=== PATIENT | female | born 1985 | race Caucasian/White ===

== ENCOUNTER → 2016-04-24 | Outpatient (CLI) | payer OTHER ==
[~2016-04-24] MED LIST: ALPR.25 PO; AZAT50 PO; DICY1TAB26 PO; DULO1CAP PO; DULO1CAP3 PO; LACT20SO4 PO; LUPR3.75 IM; MACR100C2 PO; MESA1000R RECTAL; MESA1TAB2 PO; MESA400C2 PO; MESA800 PO; ONDAN4 PO; OXYC1SOL5 PO; OXYC1TAB63 PO; PERC5TAB12 PO; PHEN0.4T PO; PRED10 PO; PRED20 PO; PROM25TA10 PO; PROT40TA PO; SERT50 PO; SPRI28TA PO; ZOFR4TAB PO; [UNRECOGNIZED DRUG - OTHER] PO
[2016-04-24 15:29] LABS: AUTOMATED NEUTROPHIL # 10.3 TH/MM3 (1.8-7.7); BASOPHIL % 0.3 % (0.0-2.0); EOSINOPHIL % 0.3 % (0.0-4.0); HEMO FLAGS DIFF FINAL; LYMPH % 14.2 % (9.0-44.0); LYMPHOCYTE # 1.8 TH/MM3 (1.0-4.8); MEAN CELL VOLUME 85.9 FL (80.0-100.0); MEAN CORPUSCULAR HEMOGLOBIN 27.8 PG (27.0-34.0); MEAN CORPUSCULAR HGB CONC 32.3 % (32.0-36.0); MONO % 2.7 % (0.0-8.0); NEUT % 82.5 % (16.0-70.0); PLATELET COUNT 379 TH/MM3 (150-450); RED BLOOD COUNT 4.54 MIL/MM3 (4.00-5.30); RED CELL DISTRIBUTION WIDTH 17.2 % (11.6-17.2); WHITE BLOOD COUNT 12.4 TH/MM3 (4.0-11.0)
[2016-04-24 15:39] LABS: BLOOD, URINE MOD (NEG); COMMENT (UR) CULT NOT INDICATED; GLUCOSE,URINE NEG (NEG); KETONE, URINE TRACE mg/dL (NEG); MUCUS URINE FEW /lpf (OCC); NITRITE,URINE NEG (NEG); SQUAMOUS EPITHELIAL CELL URINE 2 /hpf (0-5); URINE COLOR YELLOW (YELLW/STRAW)
[2016-04-24 15:56] LABS: ANION GAP 12 MEQ/L (5-15); BICARBONATE 27.1 MEQ/L (21.0-32.0); BLOOD UREA NITROGEN 22 MG/DL (7-18); CHLORIDE 100 MEQ/L (98-107); GLOMERULAR FILTRATION RATE 95 ML/MIN (>89); GLUCOSE,FASTING 109 MG/DL (74-99); POTASSIUM 4.3 MEQ/L (3.5-5.1); SODIUM (NA) 139 MEQ/L (136-145)
[2016-04-24 16:02] LABS: BHCG SCREEN QUALITATIVE LESS THAN 1 MIU/ML (0-5)
== END ==
LOC: CPRE 14:31
PROVIDERS: ATTEND Obstetrics & Gynecology
DX: Z01.812 Encounter for preprocedural laboratory examination (principal); N80.9 Endometriosis, unspecified
CPT/HCPCS: 36415; 80048; 81001; 84703; 85025; 86850; 86900; 86901

== ENCOUNTER → 2016-04-26 | Day surgery (SDC) | payer OTHER ==
[~2016-04-26] VITALS: Ht 167.6 cm; Wt 98.7 kg
[~2016-04-26] MED LIST changes: +*LABETALOL HCL 100 MG/20 ML VIAL PERIprocedural Use ONLY ONE; +*MEPERIDINE 25 MG INJ VIAL PERIprocedural Use ONLY ONE; +*ONDANSETRON 4 MG VIAL PERIprocedural Use ONLY ONE; +*morphine SULFATE 8 MG/ML PERIprocedure ONLY ONE; +ACETAMINOPHEN 1000 MG/100 ML VIAL IV ONE; +ACETAMINOPHEN/HYDROcodone 325 MG/10 MG TAB PO PRN; +ACETAMINOPHEN/HYDROcodone 325 MG/5 MG TAB PO PRN; +APREPITANT 40 MG CAP ONE; +APREPITANT 40 MG CAP PO SCH; +ARTIFICIAL TEARS OPTH OINT 3.5 APPLIC/3.5 GM TUBO ONE; +BUPIVACAINE HCL PF 0.25% 30 ML VIAL ONE; +DEXAMETHASONE SOD PHOS 4 MG/ML VIAL ONE; -DICY1TAB26 PO; +FAMOTIDINE 20 MG/2 ML VIAL ONE; +HYDROCORTISONE SOD SUCCINATE 100 MG VIAL IV SCH; +HYDROCORTISONE SOD SUCCINATE 100 MG VIAL ONE; +HYDROmorphone HCL PF 1 MG/ML VIAL IVP PRN; +HYDROmorphone HCL PF 2 MG/ML VIAL ONE; +IBUPROFEN 600 MG TAB PO PRN; +INSULIN HUMAN REGULAR 1,000 UNITS/10 ML VIAL SQ PRN; +KETOROLAC TROMETHAMINE 30 MG/ML (IVP) VIAL IVP PRN; -LACT20SO4 PO; +LACTATED RINGER'S 1000 ML INJ 1,000 ML IV ONE; +LACTATED RINGER'S 1000 ML INJ 1,000 ML IV SCH; +LACTATED RINGER'S 1000 ML IV SCH; +LORazepam 0.5 MG TAB PO PRN; -MESA1000R RECTAL; -MESA800 PO; +METOPROLOL TARTRATE 25 MG TAB PO PRN; +MIDAZOLAM HCL 2 MG/2 ML VIAL ONE; +NEOSTIGMINE 3 MG/3 ML SYR IV ONE; +NORMOSOL R INJ 1,000 ML IV ONE; -ONDAN4 PO; +ONDANSETRON HCL 4 MG/2 ML VIAL IV PUSH ONE; +ONDANSETRON HCL 4 MG/2 ML VIAL IVP PRN; -OXYC1SOL5 PO; -PRED20 PO; +PROMETHAZINE INJ 25 MG/ML VIAL IM PRN; +PROPOFOL 200 MG/20 ML AMP IV ONE; -SERT50 PO; +SODIUM CHLORID 0.9% 500 ML IV SCH; +SODIUM CHLORIDE 0.9% FLUSH 5 ML FLUSH FLUSH PRN; +SODIUM CHLORIDE 0.9% FLUSH 5 ML FLUSH FLUSH SCH; +SUGAMMADEX SODIUM 200 MG/2 ML VIAL IV PUSH ONE; +ceFAZolin 1,000 MG/NS 100 ML IV SCH; +ceFAZolin 2 GM PREMIX 50 ML IV SCH; +ceFAZolin 2 GM PREMIX 50 ML ONE; +diphenhydrAMINE HCL 25 MG CAP PO PRN; +fentaNYL CITRATE 250 MCG/5 ML AMP ONE
[2016-04-26 06:54] VITALS: BP 140/91; PULSE 87; RESP 20; TEMP 97.9; O2SAT 96
[2016-04-26 12:40] VITALS: O2SAT 99
--- NOTE | 2016-04-26 13:28 | MP ---
cc: IZABELLA RAMACHANDRAN M.D., STEPHEN J. M.D. DATE OF SURGERY: 04/26/2016 PREOPERATIVE DIAGNOSIS 1. Chronic pelvic pain. 2. History of ulcerative colitis. 3. Documented pedunculated uterine fibroid. 4. Complex ovarian cyst of the right ovary. 5. Dyspareunia. 6. Dysmenorrhea. PROCEDURE Exam under anesthesia, operative laparoscopy with robot assist, solitary myomectomy, right ovarian cystectomy, resection and ablation of pelvic endometriosis. POSTOPERATIVE DIAGNOSIS 1. Chronic pelvic pain. 2. History of ulcerative colitis. 3. Documented pedunculated uterine fibroid. 4. Complex ovarian cyst of the right ovary. 5. Dyspareunia. 6. Dysmenorrhea. 7. Stage III pelvic endometriosis. 8. Small pedunculated uterine myoma. 9. Endometrioma of the right ovary. SURGEON Abimael ANESTHESIA General with endotracheal intubation. ESTIMATED BLOOD LOSS 50 cc. DRAINS Ng to gravity during the procedure. INDICATION FOR PROCEDURE Patient with persistent chronic pelvic pain despite conservative measures. Ultrasound reveals a solid mass developing off the right uterine cornua consistent with a uterine fibroid measuring about 3-4 cm. She also had a complex echogenic cyst of the right ovary suggesting either dermoid cyst or endometrioma. After discussing the patient's clinical history the patient elected for operative laparoscopy. The patient received Ancef 2 grams prophylactically. PROCEDURE DESCRIPTION The patient was taken to the operating room in stable condition, underwent general anesthesia with endotracheal intubation. She was carefully positioned on the operating table in dorsal lithotomy position with Karthikeyan stirrups using the lower extremities for support. She had sequentials placed on her lower extremities for VTE prophylaxis. She was carefully positioned and padding was added where necessary. The arms were tucked at her sides. The patient was then prepped and draped. A timeout was conducted and agreed by all present in the room. Examination of the pelvis revealed midline cervix, no focal fixation or deformity. A small VCare uterine manipulator was inserted through the cervical os. A Ng catheter was inserted by sterile technique. Gloves were changed. The abdomen was examined. The patient is obese. There was no evidence of previous scar. The umbilical port was chosen first. A small incision was made after injecting with about 3 cc of 0.25% plain Marcaine. A Veress needle was used to gain entry into the peritoneal cavity. With insufflation at low pressure pneumoperitoneum was established and then a 5 mm visible port trocar was inserted into the peritoneal cavity without complication. The patient was then placed in steep Trendelenburg positioning and then accessory ports were placed on the right and left flank using 8 mm trocars. The patient had a suprapubic port placed as an special education assistant port using a 5 mm trocar and then the umbilical port was traded to a 12 mm camera port. The [employer] James patient cart was side docked with the #2 arm on the patient's left and the #1 arm on the right. Monopolar scissors were attached to the #2 arm and a bipolar [place] grasper attached to the #1 arm. The camera chosen was a 0 degrees lens. Good articulation was noted. Attention was directed to the surgeon cart where good visualization was established. Anatomic survey was conducted. The myoma obstructed the right ovary necessitating its removal first. Electrocautery using bipolar technique and sharp dissection was to excise the myoma after securing its vascular pedicle. Hemostatic control was established and the myoma was placed in the dependent portion of the cul-de-sac for later retrieval. The ovarian cyst was then evaluated and incision was made using the monopolar scissors on the antimesenteric surface of the ovary. Immediate entry revealed dark-brown syrupy material consistent with an endometrioma. The cyst was irrigated and evacuated with copious saline and then the cyst wall was excised by a combination of simple retraction and blunt dissection without evidence of active bleeding or hematoma. The cyst wall was removed and sent as permanent section. On continuation of the dissection the patient had multiple peritoneal implants involving the ovarian fossa, uterosacral ligaments on the right and left, with some minimal disease of the cul-de-sac. There was no significant deformity. All peritoneal lesions that were visible were mostly white lesions that were ablated using the monopolar energy without complication. No injuries to adjacent vital structures were noted. After completion of the ablation of the visible implants filmy peritoneal adhesions were excised. This was predominantly over the right ovary and right fallopian tube. Irrigation was conducted. There was no active bleeding. At this point the robotic portion of the procedure was complete. The patient cart was undocked. Straight laparoscopy was used. An EndoCatch bag was introduced through the umbilical port to retrieve the myoma. The myoma was then brought through the umbilical port after extending the incision approximately a centimeter allowing retrieval intact. The specimen was sent in formalin. Re-examination of the pelvis was dry with no active bleeding. The umbilical port was closed with interrupted suture of 0 Vicryl under direct vision of the closure of the fascia. Re-insufflation of the pneumoperitoneum again revealed the umbilical closure was intact, no complication. At this point the pneumoperitoneum was decompressed again and the trocars were removed, closing the incisions with a subcuticular suture of 4-0 Monocryl, Steri-Strips and Band-Aids. The uterine manipulator and the Ng were removed and retrieved easily without complication. There was no vaginal bleeding or injury to the cervix or vagina. At the completion of the case the final count was correct, the patient was stable. She was taken to the recovery room on room air. Jose Varghese MD [facility] /9:46 AM /1:06 PM
[2016-04-26 14:25] VITALS: BP 135/83; PULSE 88; RESP 18; TEMP 97.6; O2SAT 96
== END | disposition home or self-care (01) ==
LOC: HSDC 05:42
PROVIDERS: ATTEND Obstetrics & Gynecology
DX: N80.9 Endometriosis, unspecified (principal); D25.9 Leiomyoma of uterus, unspecified; N83.201 Unspecified ovarian cyst, right side; N94.10 Unspecified dyspareunia
CPT/HCPCS: 00840; 58662; 88305; 94150; J0131; J0690; J1100; J1170; J2175; J2250; J2270; J2405; J2710; J3010; J7120; 88304; J1720; J8501

== ENCOUNTER 2016-07-20 22:16 | Emergency (ER) | payer OTHER ==
[~2016-07-20] VITALS: Ht 167.6 cm; Wt 100.0 kg
[~2016-07-20 22:16] MED LIST changes: -*LABETALOL HCL 100 MG/20 ML VIAL PERIprocedural Use ONLY ONE; -*MEPERIDINE 25 MG INJ VIAL PERIprocedural Use ONLY ONE; -*ONDANSETRON 4 MG VIAL PERIprocedural Use ONLY ONE; -*morphine SULFATE 8 MG/ML PERIprocedure ONLY ONE; -ACETAMINOPHEN 1000 MG/100 ML VIAL IV ONE; -ACETAMINOPHEN/HYDROcodone 325 MG/10 MG TAB PO PRN; -ACETAMINOPHEN/HYDROcodone 325 MG/5 MG TAB PO PRN; -APREPITANT 40 MG CAP ONE; -APREPITANT 40 MG CAP PO SCH; -ARTIFICIAL TEARS OPTH OINT 3.5 APPLIC/3.5 GM TUBO ONE; -BUPIVACAINE HCL PF 0.25% 30 ML VIAL ONE; -DEXAMETHASONE SOD PHOS 4 MG/ML VIAL ONE; -DULO1CAP3 PO; -FAMOTIDINE 20 MG/2 ML VIAL ONE; -HYDROCORTISONE SOD SUCCINATE 100 MG VIAL IV SCH; -HYDROCORTISONE SOD SUCCINATE 100 MG VIAL ONE; -HYDROmorphone HCL PF 1 MG/ML VIAL IVP PRN; -HYDROmorphone HCL PF 2 MG/ML VIAL ONE; -IBUPROFEN 600 MG TAB PO PRN; -INSULIN HUMAN REGULAR 1,000 UNITS/10 ML VIAL SQ PRN; -KETOROLAC TROMETHAMINE 30 MG/ML (IVP) VIAL IVP PRN; -LACTATED RINGER'S 1000 ML INJ 1,000 ML IV ONE; -LACTATED RINGER'S 1000 ML INJ 1,000 ML IV SCH; -LACTATED RINGER'S 1000 ML IV SCH; -LORazepam 0.5 MG TAB PO PRN; -LUPR3.75 IM; -MACR100C2 PO; -METOPROLOL TARTRATE 25 MG TAB PO PRN; -MIDAZOLAM HCL 2 MG/2 ML VIAL ONE; -NEOSTIGMINE 3 MG/3 ML SYR IV ONE; -NORMOSOL R INJ 1,000 ML IV ONE; -ONDANSETRON HCL 4 MG/2 ML VIAL IV PUSH ONE; -ONDANSETRON HCL 4 MG/2 ML VIAL IVP PRN; -PERC5TAB12 PO; -PHEN0.4T PO; -PROM25TA10 PO; -PROMETHAZINE INJ 25 MG/ML VIAL IM PRN; -PROPOFOL 200 MG/20 ML AMP IV ONE; -SODIUM CHLORID 0.9% 500 ML IV SCH; -SODIUM CHLORIDE 0.9% FLUSH 5 ML FLUSH FLUSH PRN; -SODIUM CHLORIDE 0.9% FLUSH 5 ML FLUSH FLUSH SCH; -SUGAMMADEX SODIUM 200 MG/2 ML VIAL IV PUSH ONE; -[UNRECOGNIZED DRUG - OTHER] PO; -ceFAZolin 1,000 MG/NS 100 ML IV SCH; -ceFAZolin 2 GM PREMIX 50 ML IV SCH; -ceFAZolin 2 GM PREMIX 50 ML ONE; -diphenhydrAMINE HCL 25 MG CAP PO PRN; -fentaNYL CITRATE 250 MCG/5 ML AMP ONE
[2016-07-20 22:32] VITALS: BP 139/105; PULSE 116; RESP 20; TEMP 98.2; O2SAT 97
[2016-07-20] MEDS ORDERED: PANTOPRAZOLE SODIUM 40 MG VIAL IVP ONE (22:45)
[2016-07-20] MEDS ORDERED: SODIUM CHLOR 0.9% 1000 ML INJ 1,000 ML IV SCH (22:45)
[2016-07-20] MEDS ORDERED: HYDROmorphone HCL PF 1 MG/ML VIAL IV PUSH ONE ×2 (22:45→23:45)
[2016-07-20] MEDS ORDERED: SODIUM CHLORIDE 0.9% FLUSH 10 ML FLUSH IV FLUSH PRN (22:45)
[2016-07-20] MEDS ORDERED: ONDANSETRON HCL 4 MG/2 ML VIAL IVP ONE (22:45)
[2016-07-20] MEDS ORDERED: LUPR3.75 IM (22:50)
--- NOTE | 2016-07-20 22:59 | PD ---
HPI Chief Complaint: Abdominal Pain Time Seen by Provider: 22:45 Travel History International Travel<30 days: No Contact w/Intl Traveler<30days: No Traveled to known affect area: No History of Present Illness HPI 31-year-old female presents to the emergency department by private transportation the care of her mother for evaluation of abdominal pain 2 days. Patient states she has a history of ulcer colitis and is having an exacerbation. No report of diarrhea or mucoid stool or bloody stool. Patient' s had vomiting. Patient also history of endometriosis ovarian cysts and ruptured ovarian cyst. No prior history of ovarian torsion. Patient rates pain 10 over 10 in intensity. No report of fever or chills. No hematemesis coffee-ground emesis or bilious emesis. Patient is followed by Dr. Caicedo and Dr. Gonzalez. Patient has required last immobilization of the past for intractable pain and intractable vomiting. No dysuria frequency or urgency. Patient denies and takes control pills is also on Lupron. Patient is unable to identify exacerbating or alleviating factors. [facility] Past Medical History Narrative Medical Ulcerative colitis, endometriosis, ovarian cysts, uterine myomectomy, EGD, colonoscopy, appendectomy; no tobacco use occasional alcohol use; nursing notes reviewed Arthritis: No Cancer: No Cardiovascular Problems: No Diabetes: No Diminished Hearing: No Endocrine: No Gastrointestinal Disorders: Yes (COLITIS, GERD) GERD: No Genitourinary: Yes (frequent UTI's) Hepatitis: No Hiatal Hernia: No Hypertension: No Immune Disorder: No Implanted Vascular Access Dvce: Yes Kidney Stones: No Medical other: No Musculoskeletal: No Neurologic: No Psychiatric: Yes (anxiety) Reproductive: Yes (bleeding with fibroid, removed vaginally ) Respiratory: No Immunizations Current: Yes Renal Failure: No Thyroid Disease: No Ulcer: No ?: Not LMP: about a month ago : 0 Ovarian Cysts: Yes Past Surgical History Abdominal Surgery: Yes (RUPTURED CYST, APPENDECTOMY) AICD: No Appendectomy: Yes Body Medical Devices: 8 screw in jaw Cardiac Surgery: No Ear Surgery: No Endocrine Surgery: No Eye Surgery: No Genitourinary Surgery: No Gynecologic Surgery: Yes (fibroid from uterus removed vaginally ) Joint Replacement: No Neurologic Surgery: No Oral Surgery: Yes (jaw surgery to correct underbite) Pacemaker: No Thoracic Surgery: No Other Surgery: Yes Social History Alcohol Use: Yes (social, rare) Tobacco Use: No (quit; previous smoker) Substance Use: No Allergies-Medications (Allergen,Severity, Reaction): Coded Allergies: Codeine (Verified Adverse Reaction, Severe, Vomitting, 04/24/16) Reported Meds & Prescriptions Reported Meds & Active Scripts Active Phenergan (Promethazine HCl) 25 Mg Tablet 25 Mg PO Q6H PRN Pyridium (Phenazopyridine HCl) 100 Mg Tab 100 Mg PO Q8H PRN Macrobid (Nitrofurantoin Monohydrate Macrocrystals) 100 Mg Capsule 100 Mg PO BID 14 Days Percocet (Oxycodone-Acetaminophen) 5-325 mg Tab 1 Tab PO Q6H PRN Reported Lupron Depot Inj Kit (Leuprolide Acetate) 3.75 Mg Kit 3.75 Mg IM ONCE Azathioprine 50 Mg Tab 50 Mg PO DAILY Hazardous agent use appropriate precautions for handling and disposal. Mesalamine DR (Mesalamine) 800 Mg Tab 800 Mg PO TID Sprintec 28 (Norgestimate-Ethinyl Estradiol) 0.25-35 mg-Mcg Tab 1 Tab PO DAILY Protonix (Pantoprazole Sodium) 40 Mg Tab 40 Mg PO DAILY Oxycodone-Acetaminophen 5-325 mg Tab 1 Tab PO Q6H PRN Review of Systems Except as stated in HPI: all other systems reviewed are Neg General / Constitutional: No: Fever, Chills HENT: No: Congestion Cardiovascular: No: Chest Pain or Discomfort Gastrointestinal: Positive: Nausea, Vomiting, Abdominal Pain Genitourinary: Positive: Dysuria, Flank Pain Musculoskeletal: No: Myalgias, Arthralgias Skin: No Rash Neurologic: No: Weakness Psychiatric: Positive: Anxiety Hematologic/Lymphatic: No: Lymph Node Enlargement Physical Exam Narrative GENERAL: Well-developed well-nourished female in no respiratory distress in obvious discomfort SKIN: Warm and dry. HEAD: Normocephalic. EYES: No scleral icterus. No injection or drainage. NECK: Supple, trachea midline. No JVD or lymphadenopathy. CARDIOVASCULAR: Regular rate and rhythm without murmurs, gallops, or rubs. RESPIRATORY: Breath sounds equal bilaterally. No accessory muscle use. GASTROINTESTINAL: Abdomen soft, diffusely tender to palpation in all quadrants, no guarding or rebound, nondistended. MUSCULOSKELETAL: No cyanosis, or edema. BACK: Nontender without obvious deformity. No CVA tenderness. Data Data Last Documented VS Vital Signs Date Time Temp Pulse Resp B/P Pulse Ox O2 Delivery O2 Flow Rate FiO2 07/21/16 03:41 78 18 132/80 99 Room Air 07/20/16 22:32 98.2 Orders Complete Blood Count With Diff (07/20/16 22:45) Comprehensive Metabolic Panel (07/20/16 22:45) Lipase (07/20/16 22:45) Lactic Acid (07/20/16 22:45) Urinalysis - C+S If Indicated (07/20/16 22:45) Iv Access Insert/Monitor (07/20/16 22:45) Ecg Monitoring (07/20/16 22:45) Oximetry (07/20/16 22:45) Ondansetron Inj (Zofran Inj) (07/20/16 22:45) Pantoprazole Inj (Protonix Inj) (07/20/16 22:45) Sodium Chlor 0.9% 1000 Ml Inj (Ns 1000 M (07/20/16 22:45) Sodium Chloride 0.9% Flush (Ns Flush) (07/20/16 22:45) Ed Urine Pregnancytest Poc (07/20/16 22:45) Hydromorphone Pf Inj (Dilaudid Pf Inj) (07/20/16 22:45) Hydromorphone Pf Inj (Dilaudid Pf Inj) (07/20/16 23:45) Urine Culture (07/21/16 00:40) Ceftriaxone Inj (Rocephin Inj) (07/21/16 01:30) Hydromorphone Pf Inj (Dilaudid Pf Inj) (07/21/16 01:30) Sodium Chlor 0.9% 1000 Ml Inj (Ns 1000 M (07/21/16 01:45) Blood Culture (07/21/16 01:37) Ct Abd/Pel W Iv Contrast(Rout) (07/21/16 ) Iohexol 350 Inj (Omnipaque 350 Inj) (07/21/16 03:00) Oxycodone-Acetamin 5-325 Mg (Percocet (07/21/16 03:45) Labs Laboratory Tests Test 07/20/16 07/21/16 23:10 00:40 Sodium Level 142 MEQ/L Potassium Level 4.0 MEQ/L Chloride Level 108 MEQ/L Carbon Dioxide Level 24.3 MEQ/L Anion Gap 10 MEQ/L Blood Urea Nitrogen 16 MG/DL Creatinine 0.77 MG/DL Estimat Glomerular Filtration 87 ML/MIN Rate Random Glucose 110 MG/DL Lactic Acid Level 1.5 mmol/L Calcium Level 9.5 MG/DL Total Bilirubin 0.4 MG/DL Aspartate Amino Transf 28 U/L (AST/SGOT) Alanine Aminotransferase 44 U/L (ALT/SGPT) Alkaline Phosphatase 66 U/L Total Protein 7.9 GM/DL Albumin 3.9 GM/DL Lipase 144 U/L White Blood Count 12.9 TH/MM3 Red Blood Count 4.67 MIL/MM3 Hemoglobin 12.6 GM/DL Hematocrit 37.2 % Mean Corpuscular Volume 79.7 FL Mean Corpuscular Hemoglobin 26.9 PG Mean Corpuscular Hemoglobin 33.7 % Concent Red Cell Distribution Width 13.7 % Platelet Count 381 TH/MM3 Mean Platelet Volume 9.9 FL Neutrophils (%) (Auto) 68.6 % Lymphocytes (%) (Auto) 22.4 % Monocytes (%) (Auto) 5.5 % Eosinophils (%) (Auto) 2.9 % Basophils (%) (Auto) 0.6 % Neutrophils # (Auto) 8.8 TH/MM3 Lymphocytes # (Auto) 2.9 TH/MM3 Monocytes # (Auto) 0.7 TH/MM3 Eosinophils # (Auto) 0.4 TH/MM3 Basophils # (Auto) 0.1 TH/MM3 CBC Comment DIFF FINAL Differential Comment Urine Color YELLOW Urine Turbidity CLOUDY Urine pH 5.5 Urine Specific [place] GREATER THAN 1.035 Urine Protein 30 mg/dL Urine Glucose (UA) NEG mg/dL Urine Ketones TRACE mg/dL Urine Occult Blood MOD Urine Nitrite NEG Urine Bilirubin NEG Urine Leukocyte Esterase TRACE Urine RBC 15-19 /hpf Urine WBC 3-5 /hpf Urine Squamous Epithelial > 8 /hpf Cells Urine Bacteria MANY /hpf Microscopic Urinalysis Comment CULTURE INDICATED MDM Medical Decision Making Medical Screen Exam Complete: Yes Emergency Medical Condition: Yes Medical Record Reviewed: Yes Interpretation(s) Vital Signs Date Time Temp Pulse Resp B/P Pulse Ox O2 Delivery O2 Flow Rate FiO2 07/21/16 01:00 88 129/79 99 Room Air 07/20/16 22:32 98.2 116 20 139/105 97 Last Impressions Abdomen/Pelvis CT 07/21/16 0000 Signed Impressions: Service Date/Time: Thursday, July 21, 2016 02:32 - CONCLUSION: Normal examination. Jose Stubbs MD CBC & BMP Diagram 07/20/16 23:10 Differential Diagnosis Exacerbation ulcerative colitis, intractable vomiting, bowel obstruction, ectopic , cholecystitis, pancreatitis, UTI, ruptured ovarian cyst, ovarian torsion Narrative Course IV access obtained specimens collected and sent for resulting patient administered Zofran 4 mg IV and Dilaudid 1 mg IV Patient requested additional dose of Dilaudid and additional dose 1 mg IV administered as patient is quite large Patient rating on imaging results and lab values have been found to be grossly normal range urinalysis is pending Urinalysis shows many bacteria with culture indicated; patient administered first dose of IV antibiotic At 3:32 AM patient is stable for outpatient management; she has been informed of lab results and imaging results; patient continues to request Dilaudid but will be given a one-time dose of oral Protonix for Percocet as well as prescription for antibiotic and encouraged to follow-up with her primary care provider. Patient reports she has appointment on Sunday with her primary care provider. Sepsis Criteria SIRS Criteria (2 or more): Heart rate over 90, WBC > 17463, < 4000 or > 10% bands Sepsis Criteria (SIRS+source): Infect source susp/known (urine) Diagnosis Primary Impression: Abdominal pain Qualified Code: R10.84 - Generalized abdominal pain Additional Impression: UTI (urinary tract infection) Qualified Code: N39.0 - Urinary tract infection without hematuria, site unspecified Referrals: Shamar Caicedo MD PhD call for appointment Patient Instructions: General Instructions, Narcotic given in the ED Additional Instructions: Increase fluid hydration Follow clear liquid diet for next 12-24 hours advance as tolerated bland/Sonny diet and regular diet Keep scheduled appointment with your primary care provider on Sunday Return to the emergency department for any concerns or change in condition Complete course of antibiotic as prescribed Take pain medication as prescribed as needed; be aware narcotic pain medication may impair judgment, delay reaction time, increased risk for fall, cause constipation Take Phenergan as prescribed as needed for nausea and/or vomiting Take acetaminophen/Tylenol every 4 hours as needed for fever 100.4F or greater Med/Other Pt SpecificInfo: Prescription(s) given Scripts Promethazine (Phenergan)25 Mg [id number] Mg PO Q6H PRN (NAUSEA OR VOMITING) #10 TAB Ref 0 Prov:Ariadna Almonte MD 07/21/16 Phenazopyridine (Pyridium)100 Mg [id number] Mg PO Q8H PRN (DYSURIA) #6 TAB Ref 0 Prov:Ariadna Almonte MD 07/21/16 Nitrofurantoin Monohydrate Macrocrystals (Macrobid)100 Mg [id number] Mg PO BID 14 Days Ref 0 Prov:Ariadna Almonte MD 07/21/16 Oxycodone-Acetaminophen (Percocet)5-325 mg Tab1 Tab PO Q6H PRN (PAIN) #12 TAB Ref 0 Prov:Ariadna Almonte MD 07/21/16 Disposition: 01 DISCHARGE HOME Condition: Stable Ariadna Almonte MD July 20, 2016 22:58
[2016-07-20 23:24] LABS: AUTOMATED NEUTROPHIL # 8.8 TH/MM3 (1.8-7.7); BASOPHIL # 0.1 TH/MM3 (0-0.2); BASOPHIL % 0.6 % (0.0-2.0); EOSINOPHIL # 0.4 TH/MM3 (0-0.4); EOSINOPHIL % 2.9 % (0.0-4.0); HEMATOCRIT 37.2 % (35.0-46.0); HEMO FLAGS DIFF FINAL; LYMPH % 22.4 % (9.0-44.0); LYMPHOCYTE # 2.9 TH/MM3 (1.0-4.8); MEAN CELL VOLUME 79.7 FL (80.0-100.0); MEAN CORPUSCULAR HEMOGLOBIN 26.9 PG (27.0-34.0); MEAN CORPUSCULAR HGB CONC 33.7 % (32.0-36.0); MONO % 5.5 % (0.0-8.0); NEUT % 68.6 % (16.0-70.0); PLATELET COUNT 381 TH/MM3 (150-450); RED BLOOD COUNT 4.67 MIL/MM3 (4.00-5.30); RED CELL DISTRIBUTION WIDTH 13.7 % (11.6-17.2); WHITE BLOOD COUNT 12.9 TH/MM3 (4.0-11.0)
[2016-07-20 23:32] LABS: CHLORIDE 108 MEQ/L (98-107); SODIUM (NA) 142 MEQ/L (136-145)
[2016-07-20 23:37] LABS: ANION GAP 10 MEQ/L (5-15); BICARBONATE 24.3 MEQ/L (21.0-32.0); BLOOD UREA NITROGEN 16 MG/DL (7-18)
[2016-07-20 23:39] LABS: ALT (GPT) 44 U/L (10-53); AST (GOT) 28 U/L (15-37); GLOMERULAR FILTRATION RATE 87 ML/MIN (>89)
[2016-07-20 23:41] LABS: TOTAL BILIRUBIN ADULT 0.4 MG/DL (0.2-1.0)
[2016-07-20 23:42] LABS: ALKALINE PHOSPHATASE 66 U/L (45-117)
[2016-07-21 00:52] LABS: GLUCOSE,URINE NEG (NEG); KETONE, URINE TRACE mg/dL (NEG); NITRITE,URINE NEG (NEG); PH, URINE 5.5 (5.0-8.5)
[2016-07-21 01:00] VITALS: BP 129/79; PULSE 88; O2SAT 99
[2016-07-21 01:00] LABS: BLOOD, URINE MOD (NEG); URINE COLOR YELLOW (YELLW/STRAW)
[2016-07-21 01:01] LABS: BACTERIA, URINE MANY /hpf; RBC, URINE 15-19 /hpf (0-3); SQUAMOUS EPITHELIAL CELL URINE > 8 /hpf (0-5)
[2016-07-21 01:02] LABS: COMMENT (UR) CULTURE INDICATED; COMMENT2 (UR) MUCOUS PRESENT; CULTURE IF INDICATED CULTURE INDICATED
[2016-07-21] MEDS ORDERED: HYDROmorphone HCL PF 1 MG/ML VIAL IV PUSH ONE (01:30)
[2016-07-21] MEDS ORDERED: cefTRIAXone INJ 1,000 MG in SODIUM CHLORIDE 0.9% INJ 100 ML IV ONE (01:30)
[2016-07-21] MEDS ORDERED: SODIUM CHLOR 0.9% 1000 ML INJ 1,000 ML IV ONE (01:45)
[2016-07-21] MEDS ORDERED: IOHEXOL 350 MG/ML 10 ML VIAL (for RAD DIAG) IV ONE (03:00)
--- NOTE | 2016-07-21 03:00 | RADHPO ---
EXAM DATE/TIME: 07/21/2016 02:32 [place] COMPARISON: CT ABDOMEN & PELVIS W CONTRAST, July 10, 2015, 22:41. INDICATIONS : Bilateral abdominal pain radiating into lower back. IV CONTRAST: 100 cc Omnipaque 350 (iohexol) IV ORAL CONTRAST: No oral contrast ingested. RADIATION DOSE: 21.33 CTDIvol (mGy) MEDICAL HISTORY : Ulcers. Colitis. SURGICAL HISTORY : Appendectomy. ENCOUNTER: Initial ACUITY: 3 days PAIN SCALE: 8/10 LOCATION: Bilateral lower quadrant TECHNIQUE: Volumetric scanning of the abdomen and pelvis was performed. Using automated exposure control and ad justment of the mA and/or kV according to patient size, radiation dose was kept as low as reasonably achievable to obtain optimal diagnostic quality images. FINDINGS: LOWER LUNGS: The visualized lower lungs are clear. LIVER: Homogeneous density without lesion. There is no dilation of the biliary tree. No calcified gallston es. SPLEEN: Normal size without lesion. PANCREAS: Within normal limits. KIDNEYS: Normal in size and shape. There is no mass, stone or hydronephrosis. ADRENAL GLANDS: Within normal limits. VASCULAR: There is no aortic aneurysm. BOWEL/MESENTERY: The stomach, small bowel, and colon demonstrate no acute abnormality. There is no free intraperitone al air or fluid. ABDOMINAL WALL: Within normal limits. RETROPERITONEUM: There is no lymphadenopathy. BLADDER: No wall thickening or mass. REPRODUCTIVE: Within normal limits. INGUINAL: There is no lymphadenopathy or hernia. MUSCULOSKELETAL: Within normal limits for patient age. CONCLUSION: Normal examination. Jose Stubbs MD on July 21, 2016 at 2:58 Board Certified Radiologist. This report was verified electronically.
[2016-07-21] MEDS ORDERED: PHEN0.4T PO (03:35)
[2016-07-21] MEDS ORDERED: PERC5TAB12 PO (03:35)
[2016-07-21] MEDS ORDERED: MACR100C2 PO (03:35)
[2016-07-21] MEDS ORDERED: PROM25TA10 PO (03:37)
[2016-07-21 03:41] VITALS: BP 132/80; PULSE 78; RESP 18; O2SAT 99
[2016-07-21] MEDS ORDERED: oxyCODONE/ACETAMINOPHEN 5 MG/325 MG TAB PO ONE (03:45)
== END 2016-07-21 04:04 | disposition home or self-care (01) ==
LOC: PHED 22:16
DX: R10.84 Generalized abdominal pain (principal); N39.0 Urinary tract infection, site not specified; R11.2 Nausea with vomiting, unspecified; R30.0 Dysuria; F41.9 Anxiety disorder, unspecified; K21.9 Gastro-esophageal reflux disease without esophagitis; Z79.899 Other long term (current) drug therapy; Z88.5 Allergy status to narcotic agent; Z87.891 Personal history of nicotine dependence
CPT/HCPCS: 74177; 80053; 81001; 83605; 83690; 84703; 85025; 87040; 87086; 87205; 96361; 96365; 96375; 96376; 99285; C9113; J0696; J1170; J2405; J7030; Q9967

== ENCOUNTER 2016-09-10 02:53 | Emergency (ER) | payer OTHER ==
[~2016-09-10] VITALS: Ht 167.6 cm; Wt 97.8 kg
[~2016-09-10 02:53] MED LIST changes: -ALPR.25 PO; -DULO1CAP PO; +LUPR3.75 IM; +MACR100C2 PO; -MESA400C2 PO; +PERC5TAB12 PO; +PHEN0.4T PO; -PRED10 PO; +PROM25TA10 PO; -ZOFR4TAB PO
[2016-09-10 02:57] VITALS: BP 142/103; PULSE 100; RESP 22; TEMP 98.1; O2SAT 96
--- NOTE | 2016-09-10 03:24 | PD ---
HPI Chief Complaint: Abdominal Pain Time Seen by Provider: 03:14 Travel History International Travel<30 days: No Contact w/Intl Traveler<30days: No Traveled to known affect area: No History of Present Illness HPI This is a 31-year-old female who has a history of ulcerative colitis and ovarian cysts as well as endometriosis who presents to the emergency department with abdominal pain that's been going on for, constant, severe described as all over her abdomen radiating to the back associated with nausea. She denies any fevers or chills, denies any vaginal discharge or vaginal bleeding and denies any dysuria. Patient reports that this feels similar to when she had a urinary tract infection several months ago but also feels similar to her ulcerative colitis flares. PFSH Past Medical History Arthritis: No Cancer: No Cardiovascular Problems: No Diabetes: No Diminished Hearing: No Endocrine: No Gastrointestinal Disorders: Yes (COLITIS, GERD) GERD: No Genitourinary: Yes (frequent UTI's) Hepatitis: No Hiatal Hernia: No Hypertension: No Immune Disorder: No Implanted Vascular Access Dvce: Yes Kidney Stones: No Medical other: No Musculoskeletal: No Neurologic: No Psychiatric: Yes (anxiety) Reproductive: Yes (bleeding with fibroid, removed vaginally ) Respiratory: No Immunizations Current: Yes Renal Failure: No Thyroid Disease: No Ulcer: No ?: Not : 0 Ovarian Cysts: Yes Past Surgical History Abdominal Surgery: Yes (RUPTURED CYST, APPENDECTOMY) AICD: No Appendectomy: Yes Body Medical Devices: 8 screw in jaw Cardiac Surgery: No Ear Surgery: No Endocrine Surgery: No Eye Surgery: No Genitourinary Surgery: No Gynecologic Surgery: Yes (fibroid from uterus removed vaginally ) Joint Replacement: No Neurologic Surgery: No Oral Surgery: Yes (jaw surgery to correct underbite) Pacemaker: No Thoracic Surgery: No Other Surgery: Yes Social History Alcohol Use: Yes (social, rare) Tobacco Use: No (quit; previous smoker) Substance Use: No Allergies-Medications (Allergen,Severity, Reaction): Coded Allergies: Codeine (Verified Adverse Reaction, Severe, Vomitting, 09/10/16) Reported Meds & Prescriptions Reported Meds & Active Scripts Active Reported Lupron Depot Inj Kit (Leuprolide Acetate) 3.75 Mg Kit 3.75 Mg IM ONCE Azathioprine 50 Mg Tab 50 Mg PO DAILY Hazardous agent use appropriate precautions for handling and disposal. Mesalamine DR (Mesalamine) 800 Mg Tab 800 Mg PO TID Sprintec 28 (Norgestimate-Ethinyl Estradiol) 0.25-35 mg-Mcg Tab 1 Tab PO DAILY Protonix (Pantoprazole Sodium) 40 Mg Tab 40 Mg PO DAILY Oxycodone-Acetaminophen 5-325 mg Tab 1 Tab PO Q6H PRN Review of Systems Except as stated in HPI: all other systems reviewed are Neg Physical Exam Narrative GENERAL: Uncomfortable appearing, rocking back and forth in bed SKIN: Focused skin assessment warm and dry. HEAD: Atraumatic. Normocephalic. EYES: Pupils equal and round. No injection or drainage. ENT: Moist mucous membranes NECK: Trachea midline. CARDIOVASCULAR: Regular rate and rhythm. No murmur appreciated. RESPIRATORY: Clear to auscultation. Breath sounds equal bilaterally. GASTROINTESTINAL: Abdomen soft, diffusely tender to palpation with no rebound or guarding. MUSCULOSKELETAL: No obvious deformities. NEUROLOGICAL: Awake and alert. No obvious cranial nerve deficits. Moving all extremities. PSYCHIATRIC: Appropriate mood and affect; insight and judgment normal. Data Data Last Documented VS Vital Signs Date Time Temp Pulse Resp B/P Pulse Ox O2 Delivery O2 Flow Rate FiO2 09/10/16 04:27 78 16 127/68 99 09/10/16 02:57 98.1 Room Air Orders Complete Blood Count With Diff (09/10/16 03:03) ^ Insert Iv (09/10/16 03:03) Comprehensive Metabolic Panel (09/10/16 03:18) Lipase (09/10/16 03:18) Lactic Acid (09/10/16 03:18) Urinalysis - C+S If Indicated (09/10/16 03:18) Ed Urine Pregnancytest Poc (09/10/16 03:18) Hydromorphone Pf Inj (Dilaudid Pf Inj) (09/10/16 03:30) Sodium Chlor 0.9% 1000 Ml Inj (Ns 1000 M (09/10/16 03:30) Hydromorphone Pf Inj (Dilaudid Pf Inj) (09/10/16 04:00) Cath For Specimen (09/10/16 04:06) Urinalysis - C+S If Indicated (09/10/16 04:06) Ondansetron Inj (Zofran Inj) (09/10/16 04:08) Ondansetron Inj (Zofran Inj) (09/10/16 04:30) Sodium Chlor 0.9% 1000 Ml Inj (Ns 1000 M (09/10/16 04:30) Creatine Kinase (Cpk) (09/10/16 04:38) Methylprednisolone So Succ Inj (Solumedr (09/10/16 04:45) Labs Laboratory Tests Test 09/10/16 09/10/16 03:40 04:15 White Blood Count 11.1 TH/MM3 Red Blood Count 4.78 MIL/MM3 Hemoglobin 12.6 GM/DL Hematocrit 38.1 % Mean Corpuscular Volume 79.7 FL Mean Corpuscular Hemoglobin 26.3 PG Mean Corpuscular Hemoglobin 33.0 % Concent Red Cell Distribution Width 15.9 % Platelet Count 374 TH/MM3 Mean Platelet Volume 10.3 FL Neutrophils (%) (Auto) 67.3 % Lymphocytes (%) (Auto) 23.1 % Monocytes (%) (Auto) 7.0 % Eosinophils (%) (Auto) 1.5 % Basophils (%) (Auto) 1.1 % Neutrophils # (Auto) 7.4 TH/MM3 Lymphocytes # (Auto) 2.6 TH/MM3 Monocytes # (Auto) 0.8 TH/MM3 Eosinophils # (Auto) 0.2 TH/MM3 Basophils # (Auto) 0.1 TH/MM3 CBC Comment DIFF FINAL Differential Comment Urine Color YELLOW YELLOW Urine Turbidity CLOUDY CLEAR Urine pH 6.0 6.0 Urine Specific [place] 1.033 1.034 Urine Protein NEG mg/dL 30 mg/dL Urine Glucose (UA) NEG mg/dL 250 mg/dL Urine Ketones 15 mg/dL 80 OR GREATER mg/dL Urine Occult Blood MOD MOD Urine Nitrite NEG NEG Urine Bilirubin NEG NEG Urine Leukocyte Esterase NEG NEG Urine RBC 0-3 /hpf 0-3 /hpf Urine WBC 6-8 /hpf 6-8 /hpf Urine Squamous Epithelial > 8 /hpf 6-8 /hpf Cells Urine Bacteria FEW /hpf RARE /hpf Urine Mucus MANY /lpf MANY /lpf Microscopic Urinalysis Comment CULT NOT CATH-CULT NOT INDICATED IND Sodium Level 140 MEQ/L Potassium Level 3.9 MEQ/L Chloride Level 107 MEQ/L Carbon Dioxide Level 21.3 MEQ/L Anion Gap 12 MEQ/L Blood Urea Nitrogen 18 MG/DL Creatinine 0.75 MG/DL Estimat Glomerular Filtration 90 ML/MIN Rate Random Glucose 104 MG/DL Lactic Acid Level 3.2 mmol/L Calcium Level 9.4 MG/DL Total Bilirubin 0.4 MG/DL Aspartate Amino Transf 17 U/L (AST/SGOT) Alanine Aminotransferase 27 U/L (ALT/SGPT) Alkaline Phosphatase 62 U/L Total Creatine Kinase 53 U/L Total Protein 7.9 GM/DL Albumin 3.8 GM/DL Lipase 103 U/L MDM Medical Decision Making Medical Screen Exam Complete: Yes Emergency Medical Condition: Yes Medical Record Reviewed: Yes (patient has been hospitalized multiple times in the setting of intractable abdominal pain attributed to ovarian cysts, endometriosis and ulcerative colitis. She is prescribed chronic opiate therapy by her primary care physician and medical administrative technician) Interpretation(s) Afebrile, mild tachycardia, mild hypertension Mild leukocytosis Electrolytes are reassuring Lactic acid is 3.2 CK is 53 Initial urinalysis was contaminated with a large amount of squamous epithelial cells, repeat urinalysis was obtained via catheterization demonstrating ketonuria and 6-8 white blood cells Differential Diagnosis Ulcerative colitis flare, endometriosis, ovarian cyst rupture, urinary tract infection, pyelonephritis Narrative Course This is a 31-year-old female with a history of chronic abdominal pain who presents to the emergency department with 1 week of severe abdominal pain that radiates to the back. Labs are obtained which were all reassuring with the exception of a lactic acid which was 3.2 which I suspect is in the setting of dehydration. Urinalysis demonstrates ketonuria also consistent with dehydration. She does have some bacteria in the urine. I had a long conversation with the patient regarding the risks versus benefits of CT imaging. She acknowledges that she's had multiple CT scans in the past several years and they rarely identify the etiology of her pain. She had this same pain in June and she had a CT scan at that time which was unrevealing. I think the risks outweigh the benefits of CT imaging at this time and I don't think it would be very high yield. She was given 2 L of IV hydration and pain control. I did speak to her regarding the negative effects of long-term opiate therapy and the risk of opiate hyperalgesia. We agreed to a trial of prednisone in the case that this is an ulcerative colitis flare as well as ciprofloxacin for possible urinary tract infection. She will follow-up with Dr. Caicedo on [place] and return to the emergency department if her symptoms worsen. Diagnosis Primary Impression: Chronic abdominal pain Patient Instructions: General Instructions Additional Instructions: If you develop severe or worsening abdominal pain, fever>100.4, persistent vomiting or inability to eat or drink return to the emergency department immediately. Follow up with your primary care physician in 1-2 days for a check-up. Med/Other Pt SpecificInfo: Prescription(s) given Scripts Prednisone (48) 10 mg tab Dose Pack 10 Mg [id number] Mg PO DIRECTED #1 DSPK Ref 0 Prov:Tova Ruiz MD 09/10/16 Ciprofloxacin 500 Mg [id number] Mg PO BID 7 Days Prov:Tova Ruiz MD 09/10/16 Disposition: 01 DISCHARGE HOME Condition: Stable Tova Ruiz MD Sep 10, 2016 03:24 Tova Ruiz MD Sep 10, 2016 03:24
[2016-09-10] MEDS ORDERED: HYDROmorphone HCL PF 1 MG/ML VIAL IV PUSH ONE ×2 (03:30→04:00)
[2016-09-10] MEDS ORDERED: SODIUM CHLOR 0.9% 1000 ML INJ 1,000 ML IV ONE ×2 (03:30→04:30)
[2016-09-10 03:51] LABS: AUTOMATED NEUTROPHIL # 7.4 TH/MM3 (1.8-7.7); BASOPHIL # 0.1 TH/MM3 (0-0.2); BASOPHIL % 1.1 % (0.0-2.0); EOSINOPHIL # 0.2 TH/MM3 (0-0.4); EOSINOPHIL % 1.5 % (0.0-4.0); HEMATOCRIT 38.1 % (35.0-46.0); HEMO FLAGS DIFF FINAL; LYMPH % 23.1 % (9.0-44.0); LYMPHOCYTE # 2.6 TH/MM3 (1.0-4.8); MEAN CELL VOLUME 79.7 FL (80.0-100.0); MEAN CORPUSCULAR HEMOGLOBIN 26.3 PG (27.0-34.0); NEUT % 67.3 % (16.0-70.0); PLATELET COUNT 374 TH/MM3 (150-450); RED BLOOD COUNT 4.78 MIL/MM3 (4.00-5.30); RED CELL DISTRIBUTION WIDTH 15.9 % (11.6-17.2); WHITE BLOOD COUNT 11.1 TH/MM3 (4.0-11.0)
[2016-09-10 03:55] LABS: GLUCOSE,URINE NEG (NEG); KETONE, URINE 15 mg/dL (NEG); NITRITE,URINE NEG (NEG)
[2016-09-10 03:56] LABS: BLOOD, URINE MOD (NEG)
[2016-09-10 03:58] LABS: URINE COLOR YELLOW (YELLW/STRAW)
[2016-09-10 03:59] LABS: CHLORIDE 107 MEQ/L (98-107); MUCUS URINE MANY /lpf (OCC); POTASSIUM 3.9 MEQ/L (3.5-5.1); SODIUM (NA) 140 MEQ/L (136-145)
[2016-09-10 04:00] LABS: BACTERIA, URINE FEW /hpf; COMMENT (UR) CULT NOT INDICATED; CULTURE IF INDICATED CULT NOT INDICATED; RBC, URINE 0-3 /hpf (0-3); SQUAMOUS EPITHELIAL CELL URINE > 8 /hpf (0-5)
[2016-09-10 04:03] LABS: ANION GAP 12 MEQ/L (5-15); BICARBONATE 21.3 MEQ/L (21.0-32.0); BLOOD UREA NITROGEN 18 MG/DL (7-18)
[2016-09-10 04:06] LABS: ALT (GPT) 27 U/L (10-53); AST (GOT) 17 U/L (15-37); GLOMERULAR FILTRATION RATE 90 ML/MIN (>89)
[2016-09-10 04:07] LABS: TOTAL BILIRUBIN ADULT 0.4 MG/DL (0.2-1.0)
[2016-09-10] MEDS ORDERED: ONDANSETRON HCL 4 MG/2 ML VIAL ONE (04:08)
[2016-09-10 04:09] LABS: ALKALINE PHOSPHATASE 62 U/L (45-117)
[2016-09-10 04:27] VITALS: BP 127/68; PULSE 78; RESP 16; O2SAT 99
[2016-09-10 04:29] LABS: GLUCOSE,URINE 250 mg/dL (NEG); NITRITE,URINE NEG (NEG)
[2016-09-10 04:30] LABS: BLOOD, URINE MOD (NEG); KETONE, URINE 80 OR GREATER mg/dL (NEG)
[2016-09-10] MEDS ORDERED: ONDANSETRON HCL 4 MG/2 ML VIAL IV ONE (04:30)
[2016-09-10 04:33] LABS: MUCUS URINE MANY /lpf (OCC); RBC, URINE 0-3 /hpf (0-3); URINE COLOR YELLOW (YELLW/STRAW)
[2016-09-10 04:34] LABS: BACTERIA, URINE RARE /hpf; COMMENT (UR) CATH-CULT NOT IND; CULTURE IF INDICATED CATH CULTURE NOT IND
[2016-09-10] MEDS ORDERED: methylPREDNISolone SOD SUCC 125 MG/2 ML VIAL IV PUSH ONE (04:45)
[2016-09-10] MEDS ORDERED: CIPR500T2 PO (05:24)
[2016-09-10] MEDS ORDERED: PRED10PA2 PO (05:24)
[2016-09-10] MEDS ORDERED: oxyCODONE/ACETAMINOPHEN 5 MG/325 MG TAB PO ONE (05:30)
[2016-09-10 06:01] VITALS: BP 125/86
== END 2016-09-10 06:03 | disposition home or self-care (01) ==
LOC: PHED 02:53
DX: R10.84 Generalized abdominal pain (principal); G89.29 Other chronic pain; M54.9 Dorsalgia, unspecified; R11.0 Nausea; R00.0 Tachycardia, unspecified; I10 Essential (primary) hypertension; D72.829 Elevated white blood cell count, unspecified; Z87.19 Personal history of other diseases of the digestive system; Z87.448 Personal history of other diseases of urinary system; Z86.59 Personal history of other mental and behavioral disorders; Z87.42 Personal history of other diseases of the female genital tract
CPT/HCPCS: 80053; 81001; 82550; 83605; 83690; 84703; 85025; 96361; 96374; 96375; 99284; J1170; J2930; J7030; P9612; J2405

== ENCOUNTER 2017-01-29 22:57 | Inpatient (IN) | payer OTHER ==
[~2017-01-29] VITALS: Ht 167.6 cm; Wt 96.0 kg
[~2017-01-29 22:57] MED LIST changes: +CIPR500T2 PO; -MACR100C2 PO; -PERC5TAB12 PO; -PHEN0.4T PO; +PRED10PA2 PO; -PROM25TA10 PO
[2017-01-29 22:59] VITALS: BP 142/90; PULSE 135; RESP 18; TEMP 98.2; O2SAT 93
[2017-01-29 23:15] VITALS: BP 142/90; PULSE 135; RESP 20; TEMP 98.2
[2017-01-29 23:20] VITALS: BP 126/104; PULSE 132; RESP 20; O2SAT 96
[2017-01-30] VITALS (15 sets, daily range): BP systolic 108–141; BP diastolic 60–101; PULSE 74–116; RESP 14–22; TEMP 96.6–98.7; O2SAT 95–99
[2017-01-30] MEDS ORDERED: SODIUM CHLOR 0.9% 1000 ML INJ 1,000 ML IV SCH (00:14)
[2017-01-30] MEDS ORDERED: SODIUM CHLORIDE 0.9% FLUSH 10 ML FLUSH IV FLUSH PRN (00:15)
[2017-01-30] MEDS ORDERED: ONDANSETRON HCL 4 MG/2 ML VIAL IVP ONE (00:15)
[2017-01-30] MEDS ORDERED: HYDROmorphone HCL PF 2 MG/ML VIAL IVS ONE (00:15)
[2017-01-30 00:54] LABS: AUTOMATED NEUTROPHIL # 9.8 TH/MM3 (1.8-7.7); BASOPHIL % 0.1 % (0.0-2.0); EOSINOPHIL # 0.1 TH/MM3 (0-0.4); EOSINOPHIL % 0.7 % (0.0-4.0); HEMATOCRIT 38.4 % (35.0-46.0); LYMPH % 24.6 % (9.0-44.0); LYMPHOCYTE # 3.7 TH/MM3 (1.0-4.8); MEAN CELL VOLUME 85.9 FL (80.0-100.0); MEAN CORPUSCULAR HEMOGLOBIN 27.3 PG (27.0-34.0); MEAN CORPUSCULAR HGB CONC 31.8 % (32.0-36.0); MONO % 10.7 % (0.0-8.0); NEUT % 63.9 % (16.0-70.0); PLATELET COUNT 618 TH/MM3 (150-450); RED BLOOD COUNT 4.48 MIL/MM3 (4.00-5.30); RED CELL DISTRIBUTION WIDTH 15.2 % (11.6-17.2); WHITE BLOOD COUNT 15.2 TH/MM3 (4.0-11.0)
[2017-01-30 00:56] LABS: HEMO FLAGS AUTO DIFF
[2017-01-30 01:09] LABS: BLOOD, URINE NEG (NEG); GLUCOSE,URINE NEG (NEG); KETONE, URINE 15 mg/dL (NEG); NITRITE,URINE POS (NEG)
[2017-01-30 01:10] LABS: CHLORIDE 101 MEQ/L (98-107); POTASSIUM 3.7 MEQ/L (3.5-5.1); SODIUM (NA) 136 MEQ/L (136-145)
[2017-01-30 01:14] LABS: ANION GAP 10 MEQ/L (5-15); BICARBONATE 24.6 MEQ/L (21.0-32.0); BLOOD UREA NITROGEN 21 MG/DL (7-18)
[2017-01-30 01:17] LABS: ALT (GPT) 38 U/L (10-53); AST (GOT) 9 U/L (15-37); GLOMERULAR FILTRATION RATE 65 ML/MIN (>89)
[2017-01-30 01:18] LABS: TOTAL BILIRUBIN ADULT 0.3 MG/DL (0.2-1.0)
[2017-01-30 01:20] LABS: ALKALINE PHOSPHATASE 72 U/L (45-117)
[2017-01-30 01:23] LABS: METHOD OF COLLECTION VOIDED; URINE COLOR AMBER (YELLW/STRAW)
[2017-01-30 01:24] LABS: MUCUS URINE FEW /lpf (OCC)
[2017-01-30 01:25] LABS: BACTERIA, URINE RARE /hpf; CALCIUM OXALATE CRYSTALS,URINE FEW /hpf; COMMENT (UR) CULTURE INDICATED; CULTURE IF INDICATED CULTURE INDICATED; SQUAMOUS EPITHELIAL CELL URINE 0-5 /hpf (0-5)
[2017-01-30] MEDS ORDERED: cefTRIAXone INJ 1,000 MG in SODIUM CHLORIDE 0.9% INJ 100 ML IV ONE (01:30)
[2017-01-30] MEDS ORDERED: SODIUM CHLOR 0.9% 1000 ML INJ 1,000 ML IV ONE (01:30)
[2017-01-30] MEDS ORDERED: HYDROmorphone HCL PF 1 MG/ML VIAL IV PUSH ONE (01:30)
--- NOTE | 2017-01-30 01:30 | PD ---
HPI Chief Complaint: GI Complaint Time Seen by Provider: 23:47 Travel History International Travel<30 days: No Contact w/Intl Traveler<30days: No Traveled to known affect area: No History of Present Illness HPI 31-year-old female presents to the emergency department by private transportation the care of her mother for complaint of abdominal pain. Patient states she's had abdominal pain since . Patient states she recently returned from [place] where she was visiting and during that time she was hospitalized for a flareup of her colitis. Patient has been seen by her office mail clerk who states she is having a flare of her colitis. Patient states recommendation was to double her maintenance medication which is provided her no relief. Patient had subjective fever or chills nausea vomiting and mucoid bloody diarrhea. Patient states she had a CAT scan by her primary office mail clerk ordered as well as a CAT scan performed in [place] vault she was admitted in the hospital. Patient does not want any further imaging. Patient states that she cannot control her pain. No report of hematemesis coffee-ground emesis or bilious emesis. Patient rates her pain as severe. PFSH Past Medical History Narrative Medical Inflammatory bowel disease ulcerative colitis upper endoscopy lower endoscopy UTI uterine fibroid ovarian cyst endometriosis; occasional alcohol use no tobacco use; nursing notes reviewed Hx Anticoagulant Therapy: No Arthritis: No Cancer: No Cardiovascular Problems: No Chemotherapy: No Cerebrovascular Accident: No Diabetes: No Diminished Hearing: No Endocrine: No Gastrointestinal Disorders: Yes (COLITIS, GERD) GERD: No Genitourinary: Yes (frequent UTI's) Hepatitis: No Hiatal Hernia: No Hypertension: No Immune Disorder: No Implanted Vascular Access Dvce: Yes Kidney Stones: No Musculoskeletal: No Neurologic: No Psychiatric: Yes (anxiety) Reproductive: Yes (bleeding with fibroid, removed vaginally ) Respiratory: No Immunizations Current: Yes Renal Failure: No Thyroid Disease: No Ulcer: No Influenza Vaccination: No ?: Not LMP: 8 months : 0 Ovarian Cysts: Yes Past Surgical History Abdominal Surgery: Yes (RUPTURED CYST, APPENDECTOMY) AICD: No Appendectomy: Yes Body Medical Devices: 8 screw in jaw Cardiac Surgery: No Ear Surgery: No Endocrine Surgery: No Eye Surgery: No Genitourinary Surgery: No Gynecologic Surgery: Yes (fibroid from uterus removed vaginally ) Hysterectomy: No Joint Replacement: No Neurologic Surgery: No Oral Surgery: Yes (jaw surgery to correct underbite) Pacemaker: No Thoracic Surgery: No Other Surgery: Yes (Endometriosis removal) Social History Alcohol Use: Yes (social, rare) Tobacco Use: No (quit; previous smoker) Substance Use: No Allergies-Medications (Allergen,Severity, Reaction): Coded Allergies: codeine (Verified Adverse Reaction, Severe, Vomitting, 01/29/17) Reported Meds & Prescriptions Reported Meds & Active Scripts Active Prednisone (48) 10 mg tab Dose Pack (Prednisone) 10 Mg Dspk 10 Mg PO DIRECTED Ciprofloxacin (Ciprofloxacin HCl) 500 Mg Tab 500 Mg PO BID 7 Days Reported Metoprolol Tartrate 25 Mg Tab 25 Mg PO DAILY Alprazolam 0.25 Mg Tab 0.25 Mg PO Q4H Duloxetine DR (Duloxetine HCl) 20 Mg Capdr 20 Mg PO DAILY Azathioprine 50 Mg Tab 50 Mg PO DAILY Hazardous agent use appropriate precautions for handling and disposal. Mesalamine DR (Mesalamine) 800 Mg Tab 800 Mg PO TID Sprintec 28 (Norgestimate-Ethinyl Estradiol) 0.25-35 mg-Mcg Tab 1 Tab PO DAILY Protonix (Pantoprazole Sodium) 40 Mg Tab 40 Mg PO DAILY Oxycodone-Acetaminophen 5-325 mg Tab 1 Tab PO Q6H PRN Review of Systems Except as stated in HPI: all other systems reviewed are Neg Physical Exam Narrative GENERAL: Well-developed obese female crying holding her abdomen dry. HEAD: Normocephalic. EYES: No scleral icterus. No injection or drainage. NECK: Supple, trachea midline. No JVD or lymphadenopathy. CARDIOVASCULAR: Regular rate and rhythm without murmurs, gallops, or rubs. RESPIRATORY: Breath sounds equal bilaterally. No accessory muscle use. GASTROINTESTINAL: Abdomen soft, diffusely tender without guarding or rebound, nondistended. MUSCULOSKELETAL: No cyanosis, or edema. BACK: Nontender without obvious deformity. No CVA tenderness. Data Data Last Documented VS Vital Signs Date Time Temp Pulse Resp B/P (MAP) Pulse Ox O2 Delivery O2 Flow Rate FiO2 01/30/17 01:07 18 01/30/17 01:05 114 133/101 (112) 96 Room Air 01/29/17 23:15 98.2 Orders Orders Complete Blood Count With Diff (01/30/17 00:14) Comprehensive Metabolic Panel (01/30/17 00:14) Lipase (01/30/17 00:14) Lactic Acid (01/30/17 00:14) Urinalysis - C+S If Indicated (01/30/17 00:14) Abdomen, Flat & Upright (01/30/17 ) Iv Access Insert/Monitor (01/30/17 00:14) Ecg Monitoring (01/30/17 00:14) Oximetry (01/30/17 00:14) Hydromorphone Pf Inj (Dilaudid Pf Inj) (01/30/17 00:15) Ondansetron Inj (Zofran Inj) (01/30/17 00:15) Sodium Chlor 0.9% 1000 Ml Inj (Ns 1000 M (01/30/17 00:14) Sodium Chloride 0.9% Flush (Ns Flush) (01/30/17 00:15) Ed Urine Pregnancytest Poc (01/30/17 00:14) Blood Culture (01/30/17 00:16) Urine Culture (01/30/17 00:47) Ceftriaxone Inj (Rocephin Inj) (01/30/17 01:30) Sodium Chlor 0.9% 1000 Ml Inj (Ns 1000 M (01/30/17 01:30) Hydromorphone Pf Inj (Dilaudid Pf Inj) (01/30/17 01:30) Azathioprine (Imuran) (01/30/17 09:00) Mesalamine Hd Dr (Asacol Hd Dr) (01/30/17 09:00) Patient Own Medication (01/30/17 09:00) Admit Order (Ed Use Only) (01/30/17 ) Judge / Telemetry RADHA.Q8H (01/30/17 02:01) Activity Oob With Assistance (01/30/17 02:01) Notify Dr: Other (01/30/17 02:01) Labs Laboratory Tests Test 01/30/17 00:20 01/30/17 00:35 01/30/17 00:47 White Blood Count 15.2 TH/MM3 Red Blood Count 4.48 MIL/MM3 Hemoglobin 12.2 GM/DL Hematocrit 38.4 % Mean Corpuscular Volume 85.9 FL Mean Corpuscular Hemoglobin 27.3 PG Mean Corpuscular Hemoglobin Concent 31.8 % Red Cell Distribution Width 15.2 % Platelet Count 618 TH/MM3 Mean Platelet Volume 9.0 FL Neutrophils (%) (Auto) 63.9 % Lymphocytes (%) (Auto) 24.6 % Monocytes (%) (Auto) 10.7 % Eosinophils (%) (Auto) 0.7 % Basophils (%) (Auto) 0.1 % Neutrophils # (Auto) 9.8 TH/MM3 Lymphocytes # (Auto) 3.7 TH/MM3 Monocytes # (Auto) 1.6 TH/MM3 Eosinophils # (Auto) 0.1 TH/MM3 Basophils # (Auto) 0.0 TH/MM3 CBC Comment AUTO DIFF Differential Comment AUTO DIFF CONFIRMED Toxic Granulation 1+ Platelet Estimate HIGH Platelet Morphology Comment NORMAL Blood Urea Nitrogen 21 MG/DL Creatinine 1.00 MG/DL Random Glucose 134 MG/DL Total Protein 7.6 GM/DL Albumin 2.6 GM/DL Calcium Level 8.7 MG/DL Alkaline Phosphatase 72 U/L Aspartate Amino Transf (AST/SGOT) 9 U/L Alanine Aminotransferase (ALT/SGPT) 38 U/L Total Bilirubin 0.3 MG/DL Sodium Level 136 MEQ/L Potassium Level 3.7 MEQ/L Chloride Level 101 MEQ/L Carbon Dioxide Level 24.6 MEQ/L Anion Gap 10 MEQ/L Estimat Glomerular Filtration Rate 65 ML/MIN Lipase 85 U/L Lactic Acid Level 2.8 mmol/L Urine Collection Type VOIDED Urine Color ASHLIE Urine Turbidity SLIGHT Urine pH 5.0 Urine Specific [place] 1.035 Urine Protein 30 mg/dL Urine Glucose (UA) NEG mg/dL Urine Ketones 15 mg/dL Urine Occult Blood NEG Urine Nitrite POS Urine Bilirubin NEG Urine Leukocyte Esterase TRACE Urine WBC 6-8 /hpf Urine WBC Clumps RARE Urine Squamous Epithelial Cells 0-5 /hpf Urine Calcium Oxalate Crystals FEW /hpf Urine Bacteria RARE /hpf Urine Mucus FEW /lpf Microscopic Urinalysis Comment CULTURE INDICATED MDM Medical Decision Making Medical Screen Exam Complete: Yes Emergency Medical Condition: Yes Medical Record Reviewed: Yes Interpretation(s) CBC white count 15,200 with lactic acid of 2.8 elevated Metabolic panel grossly within normal limits Urinalysis positive nitrites positive leukocyte Estrace positive bacteria positive white blood cells Vital Signs Date Time Temp Pulse Resp B/P (MAP) Pulse Ox O2 Delivery O2 Flow Rate FiO2 01/30/17 01:07 18 01/30/17 01:05 114 18 133/101 (112) 96 Room Air 01/30/17 01:01 96 01/29/17 23:20 132 20 126/104 (111) 96 Room Air 01/29/17 23:19 20 01/29/17 23:15 98.2 135 20 142/90 (107) 01/29/17 22:59 98.2 135 18 142/90 (107) 93 Last Impressions Abdomen X-Ray 01/30/17 0000 Signed Impressions: Service Date/Time: Monday, January 30, 2017 00:19 - CONCLUSION: Unremarkable gas pattern. Vincent Barrett MD Differential Diagnosis Abdominal pain exacerbation ulcer colitis/inflammatory bowel disease, irritable bowel syndrome, UTI, bowel obstruction Narrative Course IV access obtained specimens collected and sent for resulting patient administered Zofran 4 mg IV and Dilaudid 1 mg IV as well as maintenance IV fluids Flat and upright abdomen revealed no bowel obstruction or acute process CBC is automated differential leukocytosis with left shift urinalysis positive nitrites positive leukocyte esterase-positive WBCs consistent with infectious process Chemistries grossly within normal range Discussed with patient CT abdomen and pelvis which she refuses Case discussed with on-call [facility] physician for admission Sepsis Criteria SIRS Criteria (2 or more): Heart rate over 90, RR > 20 or PaCO2 < 32, WBC > 52839, < 4000 or > 10% bands Sepsis Criteria (SIRS+source): Infect source susp/known (urine; colitis) Severe Sepsis (+one): Lactate >2 Physician Communication Physician Communication discussed with Dr Sim Diagnosis Primary Impression: Intractable abdominal pain Additional Impressions: SIRS (systemic inflammatory response syndrome) Ulcerative colitis UTI (urinary tract infection) Admitting Information Admitting Physician Requests: Admit Ariadna Almonte MD Jan 30, 2017 01:30
[2017-01-30 01:33] LABS: PLATELET ESTIMATE SMEAR HIGH (NORMAL); PLATELET MORPHOLOGY NORMAL (NORMAL); SCAN/DIFF AUTO DIFF CONFIRMED
[2017-01-30 01:34] LABS: TOXIC GRANULATION 1+ (NORMAL)
--- NOTE | 2017-01-30 01:55 | RADRPT ---
EXAM DATE/TIME: 01/30/2017 00:19 [place] COMPARISON: ABDOMEN FLAT & UPRIGHT, July 08, 2015, 18:14. INDICATIONS : Abdominal pain. MEDICAL HISTORY : Ulcerative colitis. SURGICAL HISTORY : Appendectomy. ENCOUNTER: Initial ACUITY: 2 weeks PAIN SCORE: 10/10 LOCATION: mid abdominal. FINDINGS: Supine and upright views of the abdomen were performed. The abdominal bowel gas pattern is normal. No air fluid levels are seen. No abnormal masses, calcifications, or organomegaly is seen. The visu alized lower lungs are clear. No evidence of free intraperitoneal gas. The osseous structures are u nremarkable. CONCLUSION: Unremarkable gas pattern. Vincent Barrett MD on January 30, 2017 at 1:53 Board Certified Radiologist. This report was verified electronically.
[2017-01-30] MEDS ORDERED: NALOXONE HCL 0.4 MG/ML AMP IV PUSH PRN (02:15)
[2017-01-30] MEDS ORDERED: ONDANSETRON HCL 4 MG/2 ML VIAL IVP PRN (02:15)
[2017-01-30] MEDS ORDERED: BISACODYL 10 MG SUPP RECTAL PRN (02:15)
[2017-01-30] MEDS ORDERED: LACTULOSE SYRUP 20 GM/30 ML CUP PO PRN (02:15)
[2017-01-30] MEDS ORDERED: SENNOSIDES 8.6 MG TAB PO PRN (02:15)
[2017-01-30] MEDS ORDERED: MAGNESIUM HYDROXIDE SUSP 30 ML CUP PO PRN (02:15)
[2017-01-30] MEDS ORDERED: HYDROmorphone HCL PF 1 MG/ML VIAL IV PUSH PRN (02:15)
[2017-01-30] MEDS ORDERED: HYDROmorphone HCL PF 1 MG/ML VIAL IV PRN (02:30)
[2017-01-30] MEDS: metroNIDAZOLE 500 MG INJ 100 ML IV SCH ×3 (02:30→18:24)
[2017-01-30] MEDS: HYDROmorphone HCL PF 2 MG/ML VIAL IV PRN ×10 (04:04→22:44)
[2017-01-30] MEDS: SODIUM CHLOR 0.45% 1000 ML INJ 1,000 ML IV SCH ×2 (04:38→15:43)
[2017-01-30 06:20] LABS: AUTOMATED NEUTROPHIL # 9.2 TH/MM3 (1.8-7.7); BASOPHIL % 0.1 % (0.0-2.0); EOSINOPHIL # 0.1 TH/MM3 (0-0.4); EOSINOPHIL % 1.1 % (0.0-4.0); HEMATOCRIT 29.9 % (35.0-46.0); LYMPH % 21.6 % (9.0-44.0); LYMPHOCYTE # 2.9 TH/MM3 (1.0-4.8); MEAN CELL VOLUME 83.8 FL (80.0-100.0); MEAN CORPUSCULAR HEMOGLOBIN 27.3 PG (27.0-34.0); MEAN CORPUSCULAR HGB CONC 32.6 % (32.0-36.0); MONO % 8.6 % (0.0-8.0); NEUT % 68.6 % (16.0-70.0); PLATELET COUNT 406 TH/MM3 (150-450); RED BLOOD COUNT 3.57 MIL/MM3 (4.00-5.30); RED CELL DISTRIBUTION WIDTH 14.3 % (11.6-17.2); WHITE BLOOD COUNT 13.4 TH/MM3 (4.0-11.0)
[2017-01-30 06:22] LABS: HEMO FLAGS DIFF FINAL
[2017-01-30] MEDS: MESALAMINE HD 800 MG DELAYED RELEASE TAB PO SCH ×3 (08:13→18:25)
[2017-01-30] MEDS: methylPREDNISolone SOD SUCC 125 MG/2 ML VIAL IV PUSH SCH ×2 (08:14→22:39)
[2017-01-30] MEDS: DOCUSATE SODIUM 50 MG/SENNA 8.6 MG TAB PO SCH ×2 (08:14→21:00)
[2017-01-30] MEDS: SODIUM CHLORIDE 0.9% FLUSH 10 ML FLUSH IV FLUSH SCH ×2 (08:16→22:41)
[2017-01-30] MEDS ORDERED: DULO1CAP PO (08:19)
[2017-01-30] MEDS ORDERED: METO25TA3 PO (08:32)
[2017-01-30] MEDS ORDERED: ALPR0.25 PO (08:32)
[2017-01-30] MEDS ORDERED: NORGESTIMATE ETHINYL ESTRADIOL PO SCH (09:00)
[2017-01-30] MEDS ORDERED: azaTHIOprine 50 MG TAB PO SCH (09:00)
--- NOTE | 2017-01-30 12:41 | HHI.HP ---
HPI Service [facility] Hospitalists Primary Care Physician Shamar Caicedo MD, PhD Admission Diagnosis uti; sepsis; ulcerative colitis Chief Complaint: persistent abdominal pain with nausea Travel History International Travel<30 Days: No Contact w/Intl Traveler <30 Da: No Traveled to Known Affected Are: No Sepsis Criteria SIRS Criteria (2 or more): Heart rate over 90, WBC > 35324, < 4000 or > 10% bands History of Present Illness 31 y/o white female with hx recurrent flair up of ulcerative colitis . This was dx about 2.5 years ago. Patient has had several admits to hospital and was in [place] and was in [place] and they were going to admit her but she wanted to come back to [facility] ,CT scan done on 01/20/17 showed thicken ascending colon and prox transverse colon consistent with ulcerative colitis. Patient was prescribed antibiotics by GI but just took one days worth and has been approved from GI for biologic. Patient has had crampy bloody diarrhea will admit IV fluid antibiotics GI evaluation. Review of Systems Gastrointestinal: COMPLAINS OF: Abdominal pain, Bloody stools, Diarrhea, Nausea Past Family Social History Past Medical History ulcerative colitis,uti,gerd Past Surgical History appendix,fibroid.jaw Reported Medications Prednisone (48) 10 mg tab Dose Pack (Prednisone) 10 Mg Dspk 10 Mg PO DIRECTED Ciprofloxacin (Ciprofloxacin HCl) 500 Mg Tab 500 Mg PO BID 7 Days Reported Azathioprine 50 Mg Tab 50 Mg PO DAILY Hazardous agent use appropriate precautions for handling and disposal. Mesalamine DR (Mesalamine) 800 Mg Tab 800 Mg PO TID Sprintec 28 (Norgestimate-Ethinyl Estradiol) 0.25-35 mg-Mcg Tab 1 Tab PO DAILY Protonix (Pantoprazole Sodium) 40 Mg Tab 40 Mg PO DAILY Oxycodone-Acetaminophen 5-325 mg Tab 1 Tab PO Q6H PRN Allergies: Coded Allergies: codeine (Verified Adverse Reaction, Severe, Vomitting, 01/29/17) Social History former occ smoker,rare etoh Physical Exam Vital Signs Vital Signs Date Time Temp Pulse Resp B/P (MAP) Pulse Ox O2 Delivery O2 Flow Rate FiO2 01/30/17 08:53 74 01/30/17 08:00 96.6 75 14 122/78 (93) 97 01/30/17 04:00 98.7 116 22 141/101 (114) 96 01/30/17 03:00 89 01/30/17 02:55 84 18 138/87 (104) 99 01/30/17 02:06 88 16 137/93 (108) 97 Room Air 01/30/17 01:07 18 01/30/17 01:05 114 18 133/101 (112) 96 Room Air 01/30/17 01:01 96 01/29/17 23:20 132 20 126/104 (111) 96 Room Air 01/29/17 23:19 20 01/29/17 23:15 98.2 135 20 142/90 (107) 01/29/17 22:59 98.2 135 18 142/90 (107) 93 Physical Exam GENERAL: This is a well-nourished, well-developed patient, in no apparent distress. SKIN: No rashes, ecchymoses or lesions. Cool and dry. HEAD: Atraumatic. Normocephalic. No temporal or scalp tenderness. EYES: Pupils equal round and reactive. Extraocular motions intact. No scleral icterus. No injection or drainage. ENT: Nose without bleeding, purulent drainage or septal hematoma. Throat without erythema, tonsillar hypertrophy or exudate. Uvula midline. Airway patent. NECK: Trachea midline. No JVD or lymphadenopathy. Supple, nontender, no meningeal signs. CARDIOVASCULAR: Regular rate and rhythm without murmurs, gallops, or rubs. RESPIRATORY: Clear to auscultation. Breath sounds equal bilaterally. No wheezes , rales, or rhonchi. GASTROINTESTINAL: Abdomen soft, moderate tender, nondistended. No hepato- splenomegaly, or palpable masses. mild guarding. MUSCULOSKELETAL: Extremities without clubbing, cyanosis, or edema. No joint tenderness, effusion, or edema noted. No calf tenderness. Negative Homans sign bilaterally. NEUROLOGICAL: Awake and alert. Cranial nerves II through XII intact. Motor and sensory grossly within normal limits. Five out of 5 muscle strength in all muscle groups. Normal speech. Laboratory Laboratory Tests Test 01/30/17 00:20 01/30/17 00:35 01/30/17 00:47 01/30/17 05:55 White Blood Count 15.2 13.4 Red Blood Count 4.48 3.57 Hemoglobin 12.2 9.7 Hematocrit 38.4 29.9 Mean Corpuscular Volume 85.9 83.8 Mean Corpuscular Hemoglobin 27.3 27.3 Mean Corpuscular Hemoglobin Concent 31.8 32.6 Red Cell Distribution Width 15.2 14.3 Platelet Count 618 406 Mean Platelet Volume 9.0 8.2 Neutrophils (%) (Auto) 63.9 68.6 Lymphocytes (%) (Auto) 24.6 21.6 Monocytes (%) (Auto) 10.7 8.6 Eosinophils (%) (Auto) 0.7 1.1 Basophils (%) (Auto) 0.1 0.1 Neutrophils # (Auto) 9.8 9.2 Lymphocytes # (Auto) 3.7 2.9 Monocytes # (Auto) 1.6 1.1 Eosinophils # (Auto) 0.1 0.1 Basophils # (Auto) 0.0 0.0 CBC Comment AUTO DIFF DIFF FINAL Differential Comment AUTO DIFF CONFIRMED Toxic Granulation 1+ Platelet Estimate HIGH Platelet Morphology Comment NORMAL Blood Urea Nitrogen 21 Creatinine 1.00 Random Glucose 134 Total Protein 7.6 Albumin 2.6 Calcium Level 8.7 Alkaline Phosphatase 72 Aspartate Amino Transf (AST/SGOT) 9 Alanine Aminotransferase (ALT/SGPT) 38 Total Bilirubin 0.3 Sodium Level 136 Potassium Level 3.7 Chloride Level 101 Carbon Dioxide Level 24.6 Anion Gap 10 Estimat Glomerular Filtration Rate 65 Lipase 85 Lactic Acid Level 2.8 1.9 Urine Collection Type VOIDED Urine Color ASHLIE Urine Turbidity SLIGHT Urine pH 5.0 Urine Specific [place] 1.035 Urine Protein 30 Urine Glucose (UA) NEG Urine Ketones 15 Urine Occult Blood NEG Urine Nitrite POS Urine Bilirubin NEG Urine Leukocyte Esterase TRACE Urine WBC 6-8 Urine WBC Clumps RARE Urine Squamous Epithelial Cells 0-5 Urine Calcium Oxalate Crystals FEW Urine Bacteria RARE Urine Mucus FEW Microscopic Urinalysis Comment CULTURE INDICATED Date/Time Source Procedure Growth Status 01/30/17 00:35 Blood Peripheral Aerobic Blood Culture Pending Received 01/30/17 00:35 Blood Peripheral Anaerobic Blood Culture Pending Received 01/30/17 00:47 Urine Clean Catch Urine Culture Pending Received Result Diagram: 01/30/17 0555 01/30/[address] abd/pelvis-as above consistent with Ulcerative Colitis Course started on rocephin and flagyl Caprini VTE Risk Assessment Caprini VTE Risk Assessment: No/Low Risk (score <= 1) Caprini Risk Assessment Model Point Value = 1 Point Value = 2 Point Value = 3 Point Value = 5 Age 41-60 Minor surgery BMI > 25 kg/m2 Swollen legs Varicose veins or History of unexplained or recurrent spontaneous Oral contraceptives or hormone replacement Sepsis (< 1 month) Serious lung disease, including pneumonia (< 1 month) Abnormal pulmonary function Acute myocardial infarction Congestive heart failure (< 1 month) History of inflammatory bowel disease Medical patient at bed rest Age 61-74 Arthroscopic surgery Major open surgery (> 45 min) Laparoscopic surgery (> 45 min) Malignancy Confined to bed (> 72 hours) Immobilizing plaster cast Central venous access Age >= 75 History of VTE Family history of VTE Factor V Leiden Prothrombin [id number] Lupus anticoagulant Anticardiolipin antibodies Elevated serum homocysteine Heparin-induced thrombocytopenia Other congenital or acquired thrombophilia Stroke (< 1 month) Elective arthroplasty Hip, pelvis, or leg fracture Acute spinal cord injury (< 1 month) Prophylaxis Regimen Total Risk Factor Score Risk Level Prophylaxis Regimen 0-1 Low Early ambulation 2 Moderate Order ONE of the following: *Sequential Compression Device (SCD) *Heparin 5000 units SQ BID 3-4 Higher Order ONE of the following medications: *Heparin 5000 units SQ TID *Enoxaparin/Lovenox 40 mg SQ daily (WT < 150 kg, CrCl > 30 mL/min) *Enoxaparin/Lovenox 30 mg SQ daily (WT < 150 kg, CrCl > 10-29 mL/min) *Enoxaparin/Lovenox 30 mg SQ BID (WT < 150 kg, CrCl > 30 mL/min) AND/OR *Sequential Compression Device (SCD) 5 or more Highest Order ONE of the following medications: *Heparin 5000 units SQ TID (Preferred with Epidurals) *Enoxaparin/Lovenox 40 mg SQ daily (WT < 150 kg, CrCl > 30 mL/min) *Enoxaparin/Lovenox 30 mg SQ daily (WT < 150 kg, CrCl > 10-29 mL/min) *Enoxaparin/Lovenox 30 mg SQ BID (WT < 150 kg, CrCl > 30 mL/min) AND *Sequential Compression Device (SCD) Assessment and Plan Problem List: (1) Abdominal pain ICD Codes: R10.9 - Unspecified abdominal pain Status: Chronic Plan: on antibiotics pain medication (2) Ulcerative colitis ICD Codes: K51.90 - Ulcerative colitis, unspecified, without complications Status: Chronic Plan: chronic with acute flair up consult GI continue home medications (3) UTI (urinary tract infection) ICD Codes: N39.0 - Urinary tract infection, site not specified Status: Acute Plan: continue rocephin pending culture (4) SIRS (systemic inflammatory response syndrome) ICD Codes: R65.10 - Systemic inflammatory response syndrome (SIRS) of non- infectious origin without acute organ dysfunction Plan: repeat lactic acid level normal and wbc count improving will follow Assessment and Plan further plan as case develops will advance diet as tolerated Code Status full Discussed Condition With patient Physician Certification 2 Midnight Certification Type: Admission for Inpatient Services Order for Inpatient Services The services are ordered in accordance with Medicare regulations or non- Medicare payer requirements, as applicable. In the case of services not specified as inpatient-only, they are appropriately provided as inpatient services in accordance with the 2-midnight benchmark. Estimated LOS (days): 3 3 days is the estimated time the patient will need to remain in the hospital, assuming treatment plan goals are met and no additional complications. Post-Hospital Plan: Not yet determined Omid Regalado MD Jan 30, 2017 12:41
--- NOTE | 2017-01-30 17:39 | MB ---
cc: JESSICA LANDIN M.D. DATE OF CONSULTATION 01/30/2017 DATE OF 1985 REASON FOR CONSULTATION Abdominal pain, history of ulcerative colitis, rectal bleeding, diarrhea. HISTORY OF THE PRESENT ILLNESS Thank you for this consultation. A pleasant 31-year-old lady who is known to our practice. The patient has known ulcerative colitis. The patient was diagnosed a few years ago. She has been followed in the clinic. She had flare-ups on and off. Apparently she was in the office where she had a colonoscopy which showed active colitis. She was recommended to have biologics. She is currently on mesalamine and Imuran. The patient started having more diarrhea and rectal bleeding in the last 2 weeks. She was in [place] but she left the hospital there because she wanted to come back to [facility]. CT scan showed thickening of the ascending and proximal transverse colon. Colonoscopy showed active colitis. The patient started having more diarrhea and abdominal pain with more bleeding and she came because of that. PAST MEDICAL HISTORY Significant for: 1. Reflux symptoms. 2. Urinary tract infection. 3. Ulcerative colitis. 4. Appendicitis. 5. Fibroid surgery. 6. Jaw surgery. MEDICATIONS Reviewed in the chart includin. Mesalamine DR 800 three times a day. This was increased to 1600 three times a day by ___ in the office. 2. Also Azathioprine was 50 milligrams but she said that she increased it to 100 milligrams when she saw him last 10 days ago. ALLERGIES THE PATIENT IS ALLERGIC TO CODEINE. FAMILY HISTORY Noncontributory. REVIEW OF SYSTEMS All 12-point negative except HPI. PHYSICAL EXAMINATION GENERAL: Alert, oriented, in no acute distress. VITAL SIGNS: Stable at this time. HEENT: Pupils are round and reactive to light. NECK: Supple. CHEST: Clear to auscultation and percussion. CARDIOVASCULAR: Regular rate and rhythm. No murmur or gallops. ABDOMEN: Soft, mild diffuse tenderness. Positive bowel sounds. EXTREMITIES: No edema, clubbing or cyanosis at this time. NEUROLOGIC: Intact. PSYCHOLOGIC: Appropriate. LABORATORY DATA White count 13.4, hemoglobin 9.7 down from 12.2, platelets 407. Liver function tests normal. IMAGING Abdominal x-ray was unremarkable. The patient did not want to get another CT scan since she had one last week. ASSESSMENT/PLAN 1. A 31-year-old lady with ulcerative colitis. The patient may be in flare up now with the diarrhea and rectal bleeding. She was started on 16 milligram of prednisolone twice daily. She also was started on Dilaudid and Flagyl. The patient feels about the same. I recommend continuing the current management. The patient already was approved for Remicade and we will set her for an infusion as soon as she leaves the hospital. 2. She does not need to have a repeat colonoscopy at this time. 3. We will check stool for C diff and further plan to follow based on the hospital course and the findings on stool studies. The patient understood the plan and we will proceed accordingly. MD SIOBHAN Velazquez/KK /4:32 PM /5:05 PM
[2017-01-30] MEDS: azaTHIOprine 50 MG TAB PO SCH (22:42)
[2017-01-30] MEDS: TEMAZEPAM 15 MG CAP PO PRN (22:46)
[2017-01-31] MEDS: HYDROmorphone HCL PF 2 MG/ML VIAL IV PRN ×11 (00:49→22:30)
[2017-01-31] MEDS ORDERED: cefTRIAXone INJ 1,000 MG in SODIUM CHLORIDE 0.9% INJ 100 ML IV SCH (02:00)
[2017-01-31] MEDS: metroNIDAZOLE 500 MG INJ 100 ML IV SCH ×3 (03:00→18:00)
[2017-01-31 04:28] VITALS: BP 106/72; PULSE 60; RESP 18; TEMP 97.5; O2SAT 97
[2017-01-31] MEDS: SODIUM CHLOR 0.45% 1000 ML INJ 1,000 ML IV SCH ×2 (04:32→18:04)
[2017-01-31 06:31] LABS: AUTOMATED NEUTROPHIL # 7.2 TH/MM3 (1.8-7.7); EOSINOPHIL % 0.1 % (0.0-4.0); HEMATOCRIT 30.3 % (35.0-46.0); LYMPH % 13.1 % (9.0-44.0); LYMPHOCYTE # 1.1 TH/MM3 (1.0-4.8); MEAN CELL VOLUME 84.3 FL (80.0-100.0); MEAN CORPUSCULAR HEMOGLOBIN 26.7 PG (27.0-34.0); MEAN CORPUSCULAR HGB CONC 31.7 % (32.0-36.0); MONO % 3.8 % (0.0-8.0); PLATELET COUNT 476 TH/MM3 (150-450); RED CELL DISTRIBUTION WIDTH 14.5 % (11.6-17.2); WHITE BLOOD COUNT 8.6 TH/MM3 (4.0-11.0)
[2017-01-31 06:49] LABS: HEMO FLAGS AUTO DIFF
[2017-01-31 07:20] LABS: SCAN/DIFF AUTO DIFF CONFIRMED
[2017-01-31 08:00] VITALS: BP 119/68; PULSE 73; PULSE 78; RESP 14; TEMP 97.1; O2SAT 95
[2017-01-31 08:09] LABS: C. DIFF EPI 027 PRESUMPTIVE NEGATIVE (NEGATIVE)
[2017-01-31] MEDS: SODIUM CHLORIDE 0.9% FLUSH 10 ML FLUSH IV FLUSH SCH ×2 (09:00→21:01)
[2017-01-31] MEDS: DOCUSATE SODIUM 50 MG/SENNA 8.6 MG TAB PO SCH ×2 (09:00→21:00)
[2017-01-31] MEDS: methylPREDNISolone SOD SUCC 125 MG/2 ML VIAL IV PUSH SCH ×2 (09:01→21:01)
[2017-01-31] MEDS: MESALAMINE HD 800 MG DELAYED RELEASE TAB PO SCH ×3 (09:01→18:00)
--- NOTE | 2017-01-31 10:39 | HHI.PR ---
Subjective Remarks Patient feeling a little better cbc normal for patient blood c/s and u/c/s pending cdiff study pending if negative d/c isolation is on mesalam 1600 tid and azsthopine 100 and is approved for remicade .. Patient initially admitted as sirs lactic acid was high recheck as normal and did have elevated wbc count also had UTI organ isolation probably colon with exacerbation of ulcerative colitis . This has improved with IV rocephin and flagyl will continue . Objective Vitals GENERAL: SKIN: Warm and dry. HEAD: Atraumatic. Normocephalic. EYES: Pupils equal and round. No scleral icterus. No injection or drainage. ENT: No nasal bleeding or discharge. Mucous membranes pink and moist. NECK: Trachea midline. No JVD. CARDIOVASCULAR: Regular rate and rhythm. RESPIRATORY: No accessory muscle use. Clear to auscultation. Breath sounds equal bilaterally. GASTROINTESTINAL: Abdomen soft, non-tender, nondistended. Hepatic and splenic margins not palpable. MUSCULOSKELETAL: Extremities without clubbing, cyanosis, or edema. No obvious deformities. NEUROLOGICAL: Awake and alert. No obvious cranial nerve deficits. Motor grossly within normal limits. Five out of 5 muscle strength in the arms and legs. Normal speech. PSYCHIATRIC: Appropriate mood and affect; insight and judgment normal. Vital Signs Date Time Temp Pulse Resp B/P (MAP) Pulse Ox O2 Delivery O2 Flow Rate FiO2 01/31/17 08:00 97.1 78 14 119/68 (85) 95 01/31/17 04:28 97.5 60 18 106/72 (83) 97 01/30/17 23:45 97.9 86 20 126/87 (100) 96 01/30/17 21:00 77 01/30/17 20:00 98.5 103 20 137/89 (105) 95 01/30/17 16:00 98.5 82 16 119/68 (85) 99 01/30/17 15:00 78 01/30/17 12:00 96.6 77 16 108/60 (76) 99 Result Diagram: 01/31/17 0509 01/30/[address] abd/pelvis-as above consistent with Ulcerative Colitis A/P Problem List: (1) Abdominal pain ICD Codes: R10.9 - Unspecified abdominal pain Status: Chronic Plan: on antibiotics pain medication,improving (2) Ulcerative colitis ICD Codes: K51.90 - Ulcerative colitis, unspecified, without complications Status: Chronic Plan: chronic with acute flair up consult GI continue home medications (3) UTI (urinary tract infection) ICD Codes: N39.0 - Urinary tract infection, site not specified Status: Acute Plan: continue rocephin pending culture (4) SIRS (systemic inflammatory response syndrome) ICD Codes: R65.10 - Systemic inflammatory response syndrome (SIRS) of non- infectious origin without acute organ dysfunction Plan: repeat lactic acid level normal and wbc count improving will follow, proble organ colon localized await blood c/s Assessment and Plan if feeling better d/c tomorrow and will start on Remicade . Omid Regalado MD Jan 31, 2017 10:39
[2017-01-31 12:00] VITALS: BP 127/69; PULSE 74; RESP 14; TEMP 98.6; O2SAT 99
[2017-01-31] MEDS: diphenhydrAMINE HCL 25 MG CAP PO PRN ×3 (13:07→22:29)
[2017-01-31] MEDS: VANCOMYCIN 500 MG VIAL (FOR ORAL USE ONLY) PO SCH ×2 (14:37→20:58)
[2017-01-31 16:00] VITALS: BP 118/71; PULSE 85; RESP 14; TEMP 97.3; O2SAT 96
[2017-01-31] MEDS ORDERED: PANTOPRAZOLE SODIUM 40 MG VIAL IV PUSH ONE (16:30)
[2017-01-31 20:45] VITALS: BP 133/91; PULSE 74; RESP 20; TEMP 98.5; O2SAT 97
[2017-01-31 21:00] VITALS: PULSE 73
[2017-01-31] MEDS: azaTHIOprine 50 MG TAB PO SCH (21:01)
--- NOTE | 2017-01-31 21:24 | HHI.GIFU ---
Subjective Remarks Patient laying in bed, seems to be comfortable, complaining still of some abdominal pain, still mild diarrhea and some blood, C. difficile was positive in the stool Objective Vitals I&O Vital Signs Date Time Temp Pulse Resp B/P (MAP) Pulse Ox O2 Delivery O2 Flow Rate FiO2 01/31/17 16:00 97.3 85 14 118/71 (87) 96 01/31/17 12:00 98.6 74 14 127/69 (88) 99 01/31/17 08:00 97.1 78 14 119/68 (85) 95 01/31/17 08:00 73 01/31/17 04:28 97.5 60 18 106/72 (83) 97 01/30/17 23:45 97.9 86 20 126/87 (100) 96 I/O 01/30/17 01/30/17 01/30/17 01/31/17 01/31/17 01/31/17 07:00 15:00 23:00 07:00 15:00 23:00 Intake Total 224 ml 100 ml 2136 ml 2650 ml 340 ml Balance 224 ml 100 ml 2136 ml 2650 ml 340 ml Intake Oral 0 ml 1200 ml 1200 ml 240 ml IV Total 224 ml 100 ml 936 ml 1450 ml 100 ml # Voids 0 5 3 5 # Bowel Movements 0 4 3 1 Laboratory Laboratory Tests Test 01/30/17 22:50 01/31/17 05:09 Stool C. difficile Toxin (PCR) POSITIVE Stl C. difficile Toxin Epiderm 027 PRESUMPTIVE NEGATIVE White Blood Count 8.6 Red Blood Count 3.60 Hemoglobin 9.6 Hematocrit 30.3 Mean Corpuscular Volume 84.3 Mean Corpuscular Hemoglobin 26.7 Mean Corpuscular Hemoglobin Concent 31.7 Red Cell Distribution Width 14.5 Platelet Count 476 Mean Platelet Volume 8.8 Neutrophils (%) (Auto) 83.0 Lymphocytes (%) (Auto) 13.1 Monocytes (%) (Auto) 3.8 Eosinophils (%) (Auto) 0.1 Basophils (%) (Auto) 0.0 Neutrophils # (Auto) 7.2 Lymphocytes # (Auto) 1.1 Monocytes # (Auto) 0.3 Eosinophils # (Auto) 0.0 Basophils # (Auto) 0.0 CBC Comment AUTO DIFF Differential Comment AUTO DIFF CONFIRMED Date/Time Source Procedure Growth Status 01/30/17 00:35 Blood Peripheral Aerobic Blood Culture - Preliminary NO GROWTH IN 1 DAY Resulted 01/30/17 00:35 Blood Peripheral Anaerobic Blood Culture - Preliminary NO GROWTH IN 1 DAY Resulted 01/30/17 00:47 Urine Clean Catch Urine Culture - Final 10-50,000 CFU/ML MIXED GRAM POSITIVE ... Complete Physical Exam HEENT: Pupils round and reactive to light; normocephalic; atraumatic; no jaundice. Throat is clear. NECK: Neck is supple, no JVD, no lymphadenopathy. CHEST: Chest is clear to auscultation and percussion. CARDIAC: Regular rate and rhythm with no murmur gallop or rubs. ABDOMEN: Soft, nondistended, mild diffuse tenderness, no hepatosplenomegaly; bowel sounds are present in all four quadrants. EXTREMITIES: No clubbing, cyanosis, or edema. SKIN: Normal; no rash; no jaundice. 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 Assessment and Plan Plan History of ulcerative colitis, could be exacerbation but also could be having symptoms related to the C. difficile positivity. We started her on Flagyl and vancomycin, we'll continue prednisone for now but we'll start tapering it down, okay to switch to 40 mg prednisone daily by mouth tomorrow morning Continue supportive care Diet as tolerated Maggi Tai MD Jan 31, 2017 21:24
[2017-01-31] MEDS: TEMAZEPAM 15 MG CAP PO PRN (22:29)
[2017-02-01] VITALS: BP 128/80; PULSE 96; RESP 18; TEMP 98; O2SAT 99
[2017-02-01] MEDS: HYDROmorphone HCL PF 2 MG/ML VIAL IV PRN ×11 (00:59→22:41)
[2017-02-01] MEDS: VANCOMYCIN 500 MG VIAL (FOR ORAL USE ONLY) PO SCH ×4 (02:59→20:38)
[2017-02-01] MEDS: diphenhydrAMINE HCL 25 MG CAP PO PRN ×4 (02:59→22:40)
[2017-02-01] MEDS: metroNIDAZOLE 500 MG INJ 100 ML IV SCH ×2 (03:02→08:22)
[2017-02-01 04:00] VITALS: BP 118/81; PULSE 95; RESP 17; TEMP 97.9; O2SAT 98
[2017-02-01] MEDS: SODIUM CHLOR 0.45% 1000 ML INJ 1,000 ML IV SCH ×2 (08:22→22:40)
[2017-02-01] MEDS: MESALAMINE HD 800 MG DELAYED RELEASE TAB PO SCH ×3 (08:23→16:35)
[2017-02-01] MEDS: methylPREDNISolone SOD SUCC 125 MG/2 ML VIAL IV PUSH SCH (08:23)
[2017-02-01] MEDS: PANTOPRAZOLE SOD 20 MG DELAYED RELEASE TAB PO SCH (08:24)
[2017-02-01] MEDS: DOCUSATE SODIUM 50 MG/SENNA 8.6 MG TAB PO SCH ×2 (08:24→20:38)
[2017-02-01] MEDS: DULoxetine HCl DR 20 MG CAP PO SCH (08:24)
[2017-02-01] MEDS: SODIUM CHLORIDE 0.9% FLUSH 10 ML FLUSH IV FLUSH SCH ×2 (08:25→20:38)
[2017-02-01 08:40] VITALS: BP 129/82; PULSE 67; RESP 18; TEMP 98.7; O2SAT 98
--- NOTE | 2017-02-01 10:34 | HHI.PR ---
Subjective Remarks Patient feeling about the same still with bloody diarrhea and is asking for pain meds every 2 hours ,stool came back with positive for c diff and was started on po vancomycin ,rocephin d/c as u/c/s mixed jeremy and total count less 23026 will change 40mg flagyl to po and prednisone to PO . My plan would be to d/c tomorrow on home medications. Objective Vitals GENERAL: SKIN: Warm and dry. HEAD: Atraumatic. Normocephalic. EYES: Pupils equal and round. No scleral icterus. No injection or drainage. ENT: No nasal bleeding or discharge. Mucous membranes pink and moist. NECK: Trachea midline. No JVD. CARDIOVASCULAR: Regular rate and rhythm. RESPIRATORY: No accessory muscle use. Clear to auscultation. Breath sounds equal bilaterally. GASTROINTESTINAL: Abdomen soft, mild-tender, nondistended. Hepatic and splenic margins not palpable. MUSCULOSKELETAL: Extremities without clubbing, cyanosis, or edema. No obvious deformities. NEUROLOGICAL: Awake and alert. No obvious cranial nerve deficits. Motor grossly within normal limits. Five out of 5 muscle strength in the arms and legs. Normal speech. PSYCHIATRIC: Appropriate mood and affect; insight and judgment normal. Vital Signs Date Time Temp Pulse Resp B/P (MAP) Pulse Ox O2 Delivery O2 Flow Rate FiO2 02/01/17 08:40 98.7 67 18 129/82 (98) 98 02/01/17 04:00 97.9 95 17 118/81 (93) 98 02/01/17 00:00 98.0 96 18 128/80 (96) 99 01/31/17 21:00 73 01/31/17 20:45 98.5 74 20 133/91 (105) 97 01/31/17 16:00 97.3 85 14 118/71 (87) 96 01/31/17 12:00 98.6 74 14 127/69 (88) 99 Result Diagram: 01/31/17 0509 01/30/[address] abd/pelvis-as above consistent with Ulcerative Colitis A/P Problem List: (1) Abdominal pain ICD Codes: R10.9 - Unspecified abdominal pain Status: Chronic Plan: on antibiotics pain medication,still asking for q 2 hour meds (2) Ulcerative colitis ICD Codes: K51.90 - Ulcerative colitis, unspecified, without complications Status: Chronic Plan: chronic with acute flair up consult GI continue home medications will change to po prednisone (3) UTI (urinary tract infection) ICD Codes: N39.0 - Urinary tract infection, site not specified Status: Acute Plan: itu no significant colony count d/c rocephin (4) SIRS (systemic inflammatory response syndrome) ICD Codes: R65.10 - Systemic inflammatory response syndrome (SIRS) of non- infectious origin without acute organ dysfunction Plan: repeat lactic acid level normal and wbc count improving will follow, proble organ colon localized blood c/s negative (5) C. difficile colitis ICD Codes: A04.72 - Enterocolitis due to Clostridium difficile, not specified as recurrent Status: Acute Plan: stool study positive for c diff will recheck and started on po vancomycin and will stop IV flagyl change to po will need to continue meds at least 2 weeks the c diff colitis probably contributing to her symptoms Assessment and Plan plan if stable d/c tomorrow on po pain med ,nausea med vanco and flagyl and to follow with gi when can start Remicade Discharge Planning as above Omid Regalado MD Feb 01, 2017 10:34
[2017-02-01 11:26] LABS: BASOPHIL # 0.1 TH/MM3 (0-0.2); BASOPHIL % 0.8 % (0.0-2.0); LYMPH % 9.8 % (9.0-44.0); LYMPHOCYTE # 1.1 TH/MM3 (1.0-4.8); MEAN CELL VOLUME 84.1 FL (80.0-100.0); MEAN CORPUSCULAR HEMOGLOBIN 26.8 PG (27.0-34.0); MEAN CORPUSCULAR HGB CONC 31.8 % (32.0-36.0); MONO % 4.4 % (0.0-8.0); PLATELET COUNT 486 TH/MM3 (150-450); RED BLOOD COUNT 3.68 MIL/MM3 (4.00-5.30); RED CELL DISTRIBUTION WIDTH 14.3 % (11.6-17.2); WHITE BLOOD COUNT 11.7 TH/MM3 (4.0-11.0)
[2017-02-01 11:27] LABS: HEMO FLAGS DIFF FINAL
[2017-02-01 11:34] LABS: CHLORIDE 101 MEQ/L (98-107); POTASSIUM 4.2 MEQ/L (3.5-5.1); SODIUM (NA) 136 MEQ/L (136-145)
[2017-02-01 11:37] LABS: ANION GAP 7 MEQ/L (5-15); BICARBONATE 28.4 MEQ/L (21.0-32.0)
[2017-02-01 11:38] LABS: BLOOD UREA NITROGEN 13 MG/DL (7-18)
[2017-02-01 11:41] LABS: ALT (GPT) 33 U/L (10-53); AST (GOT) 9 U/L (15-37); GLOMERULAR FILTRATION RATE 96 ML/MIN (>89)
[2017-02-01 11:42] LABS: TOTAL BILIRUBIN ADULT 0.1 MG/DL (0.2-1.0)
[2017-02-01 11:43] LABS: ALKALINE PHOSPHATASE 54 U/L (45-117)
[2017-02-01] MEDS: metroNIDAZOLE 500 MG TAB PO SCH ×2 (12:17→20:38)
[2017-02-01 12:18] VITALS: BP 164/88; PULSE 64; RESP 18; TEMP 98.8; O2SAT 96
[2017-02-01 17:14] VITALS: BP 126/82; PULSE 63; RESP 18; TEMP 97.8; O2SAT 97
[2017-02-01 20:00] VITALS: BP 136/95; PULSE 75; RESP 18; TEMP 97.6; O2SAT 97
--- NOTE | 2017-02-01 20:23 | HHI.GIFU ---
Subjective Remarks Patient is laying in bed, still complaining of some abdominal discomfort, mild diarrhea, Objective Vitals I&O Vital Signs Date Time Temp Pulse Resp B/P (MAP) Pulse Ox O2 Delivery O2 Flow Rate FiO2 02/01/17 17:14 97.8 63 18 126/82 (97) 97 02/01/17 12:18 98.8 64 18 164/88 (113) 96 02/01/17 11:52 14 02/01/17 08:40 98.7 67 18 129/82 (98) 98 02/01/17 04:00 97.9 95 17 118/81 (93) 98 02/01/17 00:00 98.0 96 18 128/80 (96) 99 01/31/17 21:00 73 01/31/17 20:45 98.5 74 20 133/91 (105) 97 I/O 01/31/17 01/31/17 01/31/17 02/01/17 02/01/17 02/01/17 07:00 15:00 23:00 07:00 15:00 23:00 Intake Total 2650 ml 340 ml 1650 ml 1000 ml Balance 2650 ml 340 ml 1650 ml 1000 ml Intake Oral 1200 ml 240 ml 1000 ml IV Total 1450 ml 100 ml 1650 ml # Voids 3 5 3 4 # Bowel Movements 3 1 1 Laboratory Laboratory Tests Test 02/01/17 11:10 White Blood Count 11.7 Red Blood Count 3.68 Hemoglobin 9.9 Hematocrit 31.0 Mean Corpuscular Volume 84.1 Mean Corpuscular Hemoglobin 26.8 Mean Corpuscular Hemoglobin Concent 31.8 Red Cell Distribution Width 14.3 Platelet Count 486 Mean Platelet Volume 8.6 Neutrophils (%) (Auto) 85.0 Lymphocytes (%) (Auto) 9.8 Monocytes (%) (Auto) 4.4 Eosinophils (%) (Auto) 0.0 Basophils (%) (Auto) 0.8 Neutrophils # (Auto) 10.0 Lymphocytes # (Auto) 1.1 Monocytes # (Auto) 0.5 Eosinophils # (Auto) 0.0 Basophils # (Auto) 0.1 CBC Comment DIFF FINAL Differential Comment Blood Urea Nitrogen 13 Creatinine 0.71 Random Glucose 198 Total Protein 6.2 Albumin 2.3 Calcium Level 7.9 Alkaline Phosphatase 54 Aspartate Amino Transf (AST/SGOT) 9 Alanine Aminotransferase (ALT/SGPT) 33 Total Bilirubin 0.1 Sodium Level 136 Potassium Level 4.2 Chloride Level 101 Carbon Dioxide Level 28.4 Anion Gap 7 Estimat Glomerular Filtration Rate 96 Date/Time Source Procedure Growth Status 01/30/17 00:35 Blood Peripheral Aerobic Blood Culture - Preliminary NO GROWTH IN 2 DAYS Resulted 01/30/17 00:35 Blood Peripheral Anaerobic Blood Culture - Preliminary NO GROWTH IN 2 DAYS Resulted 01/30/17 00:47 Urine Clean Catch Urine Culture - Final 10-50,000 CFU/ML MIXED GRAM POSITIVE ... Complete Physical Exam HEENT: Pupils round and reactive to light; normocephalic; atraumatic; no jaundice. Throat is clear. NECK: Neck is supple, no JVD, no lymphadenopathy. CHEST: Chest is clear to auscultation and percussion. CARDIAC: Regular rate and rhythm with no murmur gallop or rubs. ABDOMEN: Soft, nondistended, mild diffuse tenderness, no hepatosplenomegaly; bowel sounds are present in all four quadrants. EXTREMITIES: No clubbing, cyanosis, or edema. SKIN: Normal; no rash; no jaundice. RECREATION LEADER: No focal deficits; alert and oriented times three. Assessment and Plan Plan History of ulcerative colitis, could be exacerbation but also could be having symptoms related to the C. difficile positivity. 01/31/2017 patient is about the same with slight improvement, she is continuing to be on prednisone, also she is on treatment for C. difficile with Flagyl and vancomycin Continue supportive care Diet as tolerated Remicade as an outpatient if 4 cup is negative Maggi Tai MD Feb 01, 2017 20:23
[2017-02-01] MEDS: predniSONE 20 MG TAB PO SCH (20:38)
[2017-02-01] MEDS: azaTHIOprine 50 MG TAB PO SCH (20:38)
[2017-02-01] MEDS: SODIUM CHLORIDE 0.9% FLUSH 10 ML FLUSH IV FLUSH PRN (22:41)
[2017-02-02] VITALS: BP 135/74; PULSE 64; RESP 16; TEMP 97.4; O2SAT 97
[2017-02-02] MEDS: HYDROmorphone HCL PF 2 MG/ML VIAL IV PRN ×6 (00:22→10:54)
[2017-02-02] MEDS: SODIUM CHLORIDE 0.9% FLUSH 10 ML FLUSH IV FLUSH PRN ×2 (00:23→02:30)
[2017-02-02] MEDS: VANCOMYCIN 500 MG VIAL (FOR ORAL USE ONLY) PO SCH ×3 (02:30→13:02)
[2017-02-02 04:00] VITALS: BP 132/81; PULSE 60; RESP 16; TEMP 97.1; O2SAT 96
[2017-02-02] MEDS: metroNIDAZOLE 500 MG TAB PO SCH ×2 (04:33→13:02)
[2017-02-02 08:00] VITALS: BP 129/85; PULSE 61; PULSE 70; RESP 14; TEMP 97.3; O2SAT 94
[2017-02-02] MEDS: DULoxetine HCl DR 20 MG CAP PO SCH (08:49)
[2017-02-02] MEDS: predniSONE 20 MG TAB PO SCH (08:49)
[2017-02-02] MEDS: PANTOPRAZOLE SOD 20 MG DELAYED RELEASE TAB PO SCH (08:49)
[2017-02-02] MEDS: DOCUSATE SODIUM 50 MG/SENNA 8.6 MG TAB PO SCH (08:49)
[2017-02-02] MEDS: SODIUM CHLORIDE 0.9% FLUSH 10 ML FLUSH IV FLUSH SCH (08:50)
[2017-02-02] MEDS: SODIUM CHLOR 0.45% 1000 ML INJ 1,000 ML IV SCH (08:51)
[2017-02-02] MEDS: MESALAMINE HD 800 MG DELAYED RELEASE TAB PO SCH ×2 (08:53→13:02)
[2017-02-02 09:20] VITALS: RESP 20
[2017-02-02] MEDS ORDERED: HYDROmorphone HCL PF 1 MG/ML VIAL IV PUSH PRN (11:15)
[2017-02-02] MEDS ORDERED: PRED20 PO (14:55)
[2017-02-02] MEDS ORDERED: VANC500I3 PO (14:55)
[2017-02-02] MEDS ORDERED: METR-1 PO (14:55)
--- NOTE | 2017-02-02 15:02 | HHI.DS ---
Discharge Summary Admission Date Jan 30, 2017 at 02:07 Admitting Diagnosis uti; sepsis; ulcerative colitis (1) Abdominal pain Diagnosis: Principal ICD Codes: R10.9 - Unspecified abdominal pain Status: Chronic (2) Ulcerative colitis Diagnosis: Principal ICD Codes: K51.90 - Ulcerative colitis, unspecified, without complications Status: Chronic (3) UTI (urinary tract infection) Diagnosis: Secondary ICD Codes: N39.0 - Urinary tract infection, site not specified Status: Acute (4) SIRS (systemic inflammatory response syndrome) Diagnosis: Secondary ICD Codes: R65.10 - Systemic inflammatory response syndrome (SIRS) of non- infectious origin without acute organ dysfunction (5) C. difficile colitis Diagnosis: Principal ICD Codes: A04.72 - Enterocolitis due to Clostridium difficile, not specified as recurrent Status: Acute Brief History 31 y/o white female with hx recurrent flair up of ulcerative colitis . This was dx about 2.5 years ago. Patient has had several admits to hospital and was in [place] and was in [place] and they were going to admit her but she wanted to come back to [facility] ,CT scan done on 01/20/17 showed thicken ascending colon and prox transverse colon consistent with ulcerative colitis. Patient was prescribed antibiotics by GI but just took one days worth and has been approved from GI for biologic. Patient has had crampy bloody diarrhea will admit IV fluid antibiotics GI evaluation. CBC/BMP: 02/01/17 1110 02/01/17 1110 Significant Findings Laboratory Tests Test 01/30/17 22:50 01/31/17 05:09 02/01/17 11:10 Stool C. difficile Toxin (PCR) POSITIVE (NEGATIVE) Red Blood Count 3.60 MIL/MM3 (4.00-5.30) 3.68 MIL/MM3 (4.00-5.30) Hemoglobin 9.6 GM/DL (11.6-15.3) 9.9 GM/DL (11.6-15.3) Hematocrit 30.3 % (35.0-46.0) 31.0 % (35.0-46.0) Mean Corpuscular Hemoglobin 26.7 PG (27.0-34.0) 26.8 PG (27.0-34.0) Mean Corpuscular Hemoglobin Concent 31.7 % (32.0-36.0) 31.8 % (32.0-36.0) Platelet Count 476 TH/MM3 (150-450) 486 TH/MM3 (150-450) Neutrophils (%) (Auto) 83.0 % (16.0-70.0) 85.0 % (16.0-70.0) White Blood Count 11.7 TH/MM3 (4.0-11.0) Neutrophils # (Auto) 10.0 TH/MM3 (1.8-7.7) Random Glucose 198 MG/DL (74-106) Total Protein 6.2 GM/DL (6.4-8.2) Albumin 2.3 GM/DL (3.4-5.0) Calcium Level 7.9 MG/DL (8.5-10.1) Aspartate Amino Transf (AST/SGOT) 9 U/L (15-37) Total Bilirubin 0.1 MG/DL (0.2-1.0) PE at Discharge GENERAL: SKIN: Warm and dry. HEAD: Atraumatic. Normocephalic. EYES: Pupils equal and round. No scleral icterus. No injection or drainage. ENT: No nasal bleeding or discharge. Mucous membranes pink and moist. NECK: Trachea midline. No JVD. CARDIOVASCULAR: Regular rate and rhythm. RESPIRATORY: No accessory muscle use. Clear to auscultation. Breath sounds equal bilaterally. GASTROINTESTINAL: Abdomen soft, mild tender, nondistended. Hepatic and splenic margins not palpable. MUSCULOSKELETAL: Extremities without clubbing, cyanosis, or edema. No obvious deformities. NEUROLOGICAL: Awake and alert. No obvious cranial nerve deficits. Motor grossly within normal limits. Five out of 5 muscle strength in the arms and legs. Normal speech. PSYCHIATRIC: Appropriate mood and affect; insight and judgment normal. Hospital Course Patient admitted for abdominal pain with known ulcerative colitis was in hospital [place] for same and did not want to be admitted to hospital and came back to [facility]. Patient may have received antibiotics [place]. Admitted to hospital and continued on imuran and asacol cymbalta,started on flagyl and rocephin as had urine suggestive of uti but cultures were unremarkable and rocephin d/tomas had CT [place] consistent with ulcerative colitis . GI saw patient in hospital and ordered c diff toxin which came back positive and added vancomycin 250 q 6h . Patient labs have been stable except for elevated glucose and slight elevation of wbc but initially was on IV steroids and changed to po prednisone 20 bid . Patient will be discharged home with f/u to pcp and GI .Patient has been approved for outpatient treatment of Remacade and this is to start once completed treatment for c diff colitis. Pt Condition on Discharge: Fair Discharge Disposition: Discharge Home Discharge Instructions DIET: Follow Instructions for: As Tolerated, No Restrictions Activities you can perform: Regular-No Restrictions New Medications: Prednisone (Prednisone) 20 Mg Tab 20 MG PO BID for ulcerative colitis for 14 Days, #28 TAB 0 Refills Metronidazole (Flagyl) 500 Mg Tab 500 MG PO Q8HR for c diff colitis MDD 1500 for 14 Days, #42 TAB Vancomycin Inj (Vancomycin Inj) 500 Mg Inj 250 MG PO Q6H for c diff colitis MDD 1000 for 14 Days, #1400 INJECTION Continued Medications: Alprazolam (Alprazolam) 0.25 Mg Tab 0.25 MG PO Q4H for Anxiety, TAB 0 Refills Azathioprine (Azathioprine) 50 Mg Tab 50 MG PO DAILY for Immunosuppression, #30 TAB 0 Refills Hazardous agent use appropriate precautions for handling and disposal. Duloxetine DR (Duloxetine DR) 20 Mg Capdr 20 MG PO DAILY, #30 CAP [address] (Mesalamine DR) 800 Mg Tab 800 MG PO TID for Ulcerative Colitis, TAB 0 Refills Metoprolol Tartrate (Metoprolol Tartrate) 25 Mg Tab 25 MG PO DAILY, #30 TAB 0 Refills Norgestimate-Ethinyl Estradiol (Sprintec 28) 0.25-35 mg-Mcg Tab 1 TAB PO DAILY for Control, #1 PACK 0 Refills Oxycodone-Acetaminophen (Oxycodone-Acetaminophen) 5-325 mg Tab 1 TAB PO Q6H PRN for PAIN, TAB 0 Refills Pantoprazole (Protonix) 40 Mg Tab 40 MG PO DAILY for Ulcer Prevention, #30 TAB 0 Refills Discontinued Medications: Ciprofloxacin (Ciprofloxacin) 500 Mg Tab 500 MG PO BID for Infection for 7 Days, TAB Prednisone (48) 10 mg tab Dose Pack (Prednisone (48) 10 mg tab Dose Pack) 10 Mg Dspk 10 MG PO DIRECTED for Inflammation, #1 DSPK 0 Refills Omid Regalado MD Feb 02, 2017 15:02
== END 2017-02-02 15:38 | disposition home or self-care (01) | DRG 372 ==
LOC: PHED 22:57 → PHEDA 01-30 02:03 → OBSVTOIN 01-30 02:07 → PH3A 01-30 02:45
PROVIDERS: ADMIT Internal Medicine; ATTEND Internal Medicine
DX: A04.72 Enterocolitis due to Clostridium difficile, not specified as recurrent (principal); R65.10 Systemic inflammatory response syndrome (SIRS) of non-infectious origin without acute organ dysfunction; K51.80 Other ulcerative colitis without complications; N39.0 Urinary tract infection, site not specified; K21.9 Gastro-esophageal reflux disease without esophagitis; F41.9 Anxiety disorder, unspecified; Z87.891 Personal history of nicotine dependence; Z88.5 Allergy status to narcotic agent
CPT/HCPCS: 74020; 80053; 81001; 83605; 83690; 84703; 85025; 87040; 87086; 87205; 87493; C9113; J0696; J1170; J2405; J2930; J7030; J7500; J7512